=== PATIENT | female | born 1980 | race Caucasian/White ===

== ENCOUNTER 2023-05-18 16:38 | Outpatient (CLI) | payer BC, SELFPAY ==
[2023-05-19 00:54] LABS: Chlamydia DNA Amplified* NOT DETECTED (No Detected); GC DNA Amplified* NOT DETECTED (No Detected)
== END 2023-05-18 16:39 | disposition home or self-care (01) ==
PROVIDERS: Visit Provider Physician Assistant Medical
DX: Z00.00 Encounter for general adult medical examination without abnormal findings (principal); E66.9 Obesity, unspecified; R59.1 Generalized enlarged lymph nodes; Z13.29 Encounter for screening for other suspected endocrine disorder
CPT/HCPCS: 80053; 83615; 86592; 86703; 86803; 87086; 87491; 87591

== ENCOUNTER 2023-05-23 09:37 | Outpatient (CLI) | payer BC, SELFPAY ==
--- NOTE | 2023-05-23 09:45 | CRLHL7_ITS ---
For Patients: As a result of the Cures Act, medical imaging exams and procedure reports are released immediately into your electronic medical record. You may view this report before your referring provider. If you have questions, please contact your health care provider. BILATERAL DIAGNOSTIC MAMMOGRAM WITH COMPUTER-AIDED DETECTION AND TOMOSYNTHESIS CLINICAL HISTORY: RIGHT axillary lump. COMPARISON: None. TECHNIQUE: Digital BILATERAL mammogram in 4 projections. Computer-aided detection and tomosynthesis were used. Real-time ultrasound imaging of RIGHT axilla with imaging documentation. BREAST COMPOSITION: The breasts are heterogeneously dense, which may obscure small masses FINDINGS: 3D CC/MLO and 2D XCCL mammogram images submitted bilaterally. BILATERAL axillary adenopathy. No suspicious breast mass or architectural distortion. No suspicious calcifications. Targeted RIGHT axillary ultrasound performed in the area of palpable concern. There is an enlarged hypoechoic lymph node with internal vascularity measuring 4.2 x 2.3 x 3.4 cm. IMPRESSION: BILATERAL axillary adenopathy on mammography and 4.2 cm enlarged RIGHT axillary lymph node on ultrasound. Findings are suspicious for lymphoma. RECOMMENDATIONS: Ultrasound-guided core needle biopsy of RIGHT axillary lymph node. BI-RADS Category 4: Suspicious Results and recommendations discussed with the patient. Dictated by Luis Barcenas MD @ 05/23/2023 10:54:36 AM/zina CLARK/Dictated by: Luis Barcenas MD @ 05/23/2023 10:54:00 AM (Electronically Signed)
--- NOTE | 2023-05-23 10:15 | CRLHL7_ITS ---
For Patients: As a result of the Century Cures Act, medical imaging exams and procedure reports are released immediately into your electronic medical record. You may view this report before your referring provider. If you have questions, please contact your health care provider. PLEASE SEE BILATERAL DIAGNOSTIC MAMMOGRAM OF SAME DAY. CRL:zina CLARK/Dictated by: Luis Barcenas MD @ 05/23/2023 10:54:00 AM (Electronically Signed)
--- NOTE | 2023-05-23 11:00 | CRLHL7_ITS ---
For Patients: As a result of the 21st Century Cures Act, medical imaging exams and procedure reports are released immediately into your electronic medical record. You may view this report before your referring provider. If you have questions, please contact your health care provider. Indication: Adenopathy Technique: Postcontrast CT chest, abdomen and pelvis. 95 cc Isovue 370 intravenous contrast. Please note that all CT scans at this facility use dose modulation, iterative reconstruction, and/or weight-based dosing when appropriate to reduce radiation dose to as low as reasonably achievable. Comparison: None Findings: In the chest, lower cervical adenopathy noted along with right supraclavicular adenopathy with lymph nodes measuring up to 1.9 cm. There is a low-density nodule within the left thyroid lobe measuring 1 cm. Right hilar adenopathy noted measuring 2.2 cm corresponding to the chest x-ray finding. Bulky axillary adenopathy noted bilaterally with lymph nodes measuring up to 3.4 cm on the right and 2.8 cm on the left. Numerous 1 cm or less mediastinal lymph nodes are present. Dependent areas of atelectasis noted without pleural effusion or pneumothorax. The heart size is upper limits of normal. Breast tissue appears unremarkable. No fracture. In the abdomen, sub cm low-density structures are present within the right hepatic lobe which are most consistent cysts or hemangiomas. The spleen is not enlarged. There is an ill-defined area of decreased attenuation within spleen inferiorly measuring 1.2 cm. No calcified gallstones. No biliary obstruction. The pancreas is normal. Normal adrenal glands. 2 millimeter stone located within the lower pole of the left kidney without hydronephrosis. Small renal cortical cysts are present bilaterally. Extrarenal pelvis is present bilaterally. Bulky retroperitoneal adenopathy with lymph nodes measuring up to 4.9 cm. Diffuse stranding in the mesenteric fat with innumerable enlarged mesenteric lymph nodes measuring up to approximately 1.8 cm. No bowel obstruction. In the pelvis, the bladder is normal. Trace physiologic free fluid. Right ovarian cyst measuring 1.4 cm. Normal left ovary. Bulky left inguinal adenopathy with lymph node mass measuring 3.3 cm. Bilateral pelvic sidewall adenopathy, left greater than right with lymph nodes measuring up to 3.0 cm. No bowel obstruction. No fracture. Impression: Bulky adenopathy in the chest, abdomen and pelvis with additional adenopathy noted in the lower neck and right supraclavicular spaces. Lymphoma favored. Patient has been scheduled for right axillary lymph node biopsy. Ill-defined lesion within the spleen measuring 1.2 cm, likely related to lymphoma. Probable subcentimeter cysts or hemangiomas within the right hepatic lobe. 1 cm colloid cyst left thyroid lobe. Please note that all CT scans at this facility use dose modulation, iterative reconstruction, and/or weight-based dosing when appropriate to reduce radiation dose to as low as reasonably achievable. Dictated by Luis Barcenas MD @ 05/23/2023 1:25:45 PM (Electronically Signed)
--- NOTE | 2023-05-23 11:00 | CRLHL7_ITS ---
For Patients: As a result of the 21st Century Cures Act, medical imaging exams and procedure reports are released immediately into your electronic medical record. You may view this report before your referring provider. If you have questions, please contact your health care provider. INDICATION: Adenopathy COMPARISON: none TECHNIQUE: A CT volumetric acquisition was performed of the neck during intravenous infusion of 95 cc of Isovue 370 nonionic intravenous contrast. Please note that all CT scans at this facility use dose modulation, iterative reconstruction, and/or weight-based dosing when appropriate to reduce radiation dose to as low as reasonably achievable. FINDINGS: The CT images demonstrate normal aeration of the mastoid air cells and middle ear cavities. Mucosal thickening noted within the left maxillary sinus and to a lesser degree within the right maxillary sinus. Leftward curvature nasal septum. The parotid and submandibular glands are of normal size and have uniform enhancement. The oropharynx appears normal. The valleculae, epiglottis, aryepiglottic folds and piriform sinuses appear normal. There is a normal appearance of the larynx and subglottic trachea. The thyroid gland is of normal size and has uniform density. Enlarged submandibular lymph nodes are present bilaterally, right greater than left. The largest submandibular lymph node on the right measures 1.7 cm. Prominent submental lymph nodes are also present measuring up to 9 millimeters. A slightly prominent lymph node is present adjacent to the right parotid gland measuring 8 millimeters. Right supraclavicular adenopathy noted with several lymph nodes present measuring up to 1.6 cm. Osseous structures unremarkable for age. Lung apices clear. IMPRESSION: Bilateral cervical adenopathy, right greater than left, primarily involving the submandibular regions. Additional adenopathy in the right supraclavicular space. Mild bilateral maxillary sinus disease, left greater than right. Please note that all CT scans at this facility use dose modulation, iterative reconstruction, and/or weight-based dosing when appropriate to reduce radiation dose to as low as reasonably achievable. Dictated by Luis Barcenas MD @ 05/23/2023 1:11:50 PM (Electronically Signed)
== END 2023-05-23 09:38 | disposition home or self-care (01) ==
LOC: MAMMO 09:38
PROVIDERS: Visit Provider Physician Assistant Medical
DX: N63.10 Unspecified lump in the right breast, unspecified quadrant (principal); N63.20 Unspecified lump in the left breast, unspecified quadrant; R59.1 Generalized enlarged lymph nodes; E04.1 Nontoxic single thyroid nodule; J32.0 Chronic maxillary sinusitis
CPT/HCPCS: 70491; 71260; 74177; 76882; 77066; G0279; Q9967

== ENCOUNTER 2023-05-26 11:09 | Outpatient (CLI) | payer BC, SELFPAY ==
--- NOTE | 2023-05-26 11:15 | CRLHL7_ITS ---
For Patients: As a result of the Century Cures Act, medical imaging exams and procedure reports are released immediately into your electronic medical record. You may view this report before your referring provider. If you have questions, please contact your health care provider. ULTRASOUND-GUIDED RIGHT AXILLARY LYMPH NODE BIOPSY CLINICAL HISTORY: Palpable right axillary adenopathy, enlarged lymph nodes in the right axilla COMPARISON STUDIES: CT and ultrasound 05/23/2023 TECHNIQUE: Real-time ultrasound with image documentation was used for targeting the right axillary lymph node lesion. Core biopsy specimens were obtained using an automated gun with a 18-gauge biopsy needle. CONSENT and TIME OUT: The procedure, risks, and alternatives were explained to the patient and a consent was signed. [place] Protocol was followed including pre-procedure verification that relevant information/documentation was available, reviewed and properly matched to the patient; consent accurate and complete; and equipment and supplies available. Time Out was conducted just prior to starting procedure to verify the four required elements: patient identity, correct side/site marked (if applicable), procedure, relevant images/results properly labeled and displayed (if applicable). PROCEDURE: The patient was positioned supine on the ultrasound table. The right axilla was prepped ChloraPrep. 8 cc of 1 percent lidocaine used for local anesthesia. Core samples were obtained. A sterile metal biopsy clip was placed percutaneously to americo the lesion position within the right axilla. The specimens were placed in 10% formalin and sent to the pathology department. Pressure was held on the biopsy site until all bleeding subsided. The skin incision was closed with Steri-Strips. An ice pack was positioned over the biopsy site. Post-biopsy instructions were reviewed with the patient, and a written copy was given to her. LATERALITY: Right axilla LESION: Hypoechoic enlarged right axillary lymph node measuring 4.2 x 2.3 x 3.3 cm SUSPICION FOR MALIGNANCY: High, probable lymphoma NUMBER OF SAMPLES: 5 IMPRESSION: Ultrasound-guided right axillary lymph node biopsy. When the pathology report is available, an addendum to this report will be made. ACR not applicable Dictated by Luis Barcenas MD @ 05/26/2023 12:03:22 PM ADDENDUM: Pathology consistent with follicular lymphoma. Oncology consultation recommended. This is concordant. Luis Barcenas M.D. Diagnostic Radiologist [email or web address] RACHEL/shelley: D& Transcribed: 4:17 pm (Electronically Signed)
== END 2023-05-26 11:10 | disposition home or self-care (01) ==
LOC: US 11:10
PROVIDERS: Visit Provider Physician Assistant Medical
DX: R59.1 Generalized enlarged lymph nodes (principal)
CPT/HCPCS: 38505; 76942; 88305; 88341; 88342; 88360; A4648; A4649

== ENCOUNTER 2023-06-15 06:23 | Day surgery (SDC) | payer BC, SELFPAY ==
[2023-06-15 06:51] LABS: Ur HCG Qualitative* Negative (Negative)
[2023-06-15 07:05] VITALS: BP 109/71; PULSE 60; RESP 16; TEMP 36.6; O2SAT 99
[2023-06-15 07:06] VITALS: BMI 32.0
[2023-06-15] MEDS: SODIUM CHLORIDE 0.9 % (FLUSH) 10 ML SYRINGE IVF (07:10)
[2023-06-15] MEDS: LACTATED RINGERS 1000 ML 1,000 ML 100 ML IV (07:10)
--- NOTE | 2023-06-15 07:30 | CRLHL7_ITS ---
For Patients: As a result of the Century Cures Act, medical imaging exams and procedure reports are released immediately into your electronic medical record. You may view this report before your referring provider. If you have questions, please contact your health care provider. INDICATION: Left-sided Port-A-Cath placement. TECHNIQUE: Fluoroscopically guided intraoperative evaluation at the time of Port-A-Cath placement. Two spot images obtained intraoperatively. FINDINGS: 64.2 seconds fluoroscopy time utilized for left-sided Port-A-Cath placement. Two spot images were obtained. The port line tip appears to be in the superior vena cava. IMPRESSION: 64.2 seconds fluoroscopy time utilized intraoperatively. Dictated by Javier Dickson MD @ 06/15/2023 9:24:47 AM (Electronically Signed)
--- NOTE | 2023-06-15 07:32 | W.ANESCHARGE ---
Anesthesia Charges Start Date/Time Anesthesia Start Date: 06/15/23 Anesthesia Start Time: 07:40 Stop Date/Time Anesthesia Stop Date: 06/15/23 Anesthesia Stop Time: 08:47
[2023-06-15] MEDS: CEFAZOLIN 2 GM INJ IVP (07:50)
[2023-06-15] MEDS: BUPIVACAINE 0.5% 30 ML INJECTION (08:15)
[2023-06-15] MEDS: 0.9% SODIUM CHL 50 ML VIAL INJECTION (08:15)
[2023-06-15] MEDS: HEPARIN 500 UNIT/5 ML SYRINGE IVF (08:15)
[2023-06-15] MEDS: LIDOCAINE 1% MDV 20 ML INJECTION (08:15)
[2023-06-15 08:42] VITALS: BP 101/63; PULSE 57; RESP 16; TEMP 36.2; O2SAT 100
[2023-06-15 08:45] VITALS: BP 103/66; PULSE 57; RESP 16; O2SAT 100
--- NOTE | 2023-06-15 08:47 | CRLHL7_ITS ---
For Patients: As a result of the Century Cures Act, medical imaging exams and procedure reports are released immediately into your electronic medical record. You may view this report before your referring provider. If you have questions, please contact your health care provider. INDICATION: Port-A-Cath placement. TECHNIQUE: AP portable seated chest x-ray. COMPARISON : May 18, 2023. FINDINGS: New left-sided Port-A-Cath with its lead tip in the superior vena cava. Right hilar lymph node mass. Clear lungs. No pneumothorax. IMPRESSION: Left-sided Port-A-Cath with lead tip in superior vena cava. No pneumothorax. Dictated by Javier Dickson MD @ 06/15/2023 9:27:06 AM (Electronically Signed)
--- NOTE | 2023-06-15 08:50 | W.ANESCHARGE ---
Anesthesia Charges Start Date/Time Anesthesia Start Date: 06/15/23 Anesthesia Start Time: 07:40 Stop Date/Time Anesthesia Stop Date: 06/15/23 Anesthesia Stop Time: 08:47
--- NOTE | 2023-06-15 08:51 | P.GSOP_ITS ---
Operative Note Date of procedure: 06/15/23 Pre-op diagnosis: Lymphoma, need for chemotherapy Post-op diagnosis: same Type of Procedure: Left IJ Port-A-Cath placement with ultrasound and fluoroscopic guidance. Indications: The patient is a 43-year-old female who has a diagnosis of lymphoma. Oncology has requested a port for chemotherapy. Procedure Description: After discussing the risks and benefits of the procedure, the patient signed informed consent.? The operative site was marked and the patient was brought to the operating room and placed on the operating table in supine position.? Care was taken to pad the patient's pressure points.?? The patient was then given sedation by anesthesia.?? The operative site was then prepped and draped in the usual sterile fashion.? A time-out was then performed. Ultrasound was used to examine the patient's jugular veins. The right internal jugular vein appeared to narrow distally and therefore I chose to place the port on the left. The patient's left internal jugular vein was visualized using ultrasound. Local anesthetic was injected into the skin overlying the vein. This was accessed percutaneously using ultrasound guidance. Using Seldinger technique, a guidewire was threaded through the needle. Fluoroscopy was brought into the field to confirm that the wire had the appropriate trajectory into the SVC. A skin jose was made around the wire. Next, local anesthetic was injected into the skin below the clavicle and along the proposed tract to the neck i ncision. A skin incision was then made with a 15 blade and a pocket created in the subcutaneous tissue with cautery. A tunneler was then used to thread the catheter from the chest wall pocket to the neck incision. Once this was done fluoroscopy was brought into the field. Over the wire the tract was dilated using fluoroscopy. The wire and the dilator were then removed leaving the sheath in the vein. Through this, the catheter was threaded. Using fluoroscopy, the catheter was positioned into the distal SVC. The catheter was noted to flush and aspirate easily. The catheter was then connected to the port. The port was placed in the pocket and secured in place with 2 0 Prolene sutures. It was noted to flush and aspirate easily. This was then locked with heparinized saline. The skin was closed with absorbable suture. Sterile dressings were applied. Instrument sponge and needle counts were correct at the end of the case. The patient was woken and taken to the PACU in stable condition. ? The patient tolerated the procedure well. Findings: Left IJ power port placed in the low SVC. Anesthesia: MAC Surgeon: Krissy Moses MD Estimated blood loss (mL): 5 Condition: stable Disposition: same day
[2023-06-15 09:00] VITALS: BP 114/70; PULSE 52; RESP 16; O2SAT 100
[2023-06-15 09:15] VITALS: BP 120/75; PULSE 55; RESP 16; O2SAT 100
== END 2023-06-15 09:54 | disposition home or self-care (01) ==
PROVIDERS: PCP Physician Assistant Medical; Visit Provider Surgery
PROC: (CPT 36561; principal; 2023-06-15 07:30)
DX: Z45.2 Encounter for adjustment and management of vascular access device (principal); C82.28 Follicular lymphoma grade III, unspecified, lymph nodes of multiple sites
CPT/HCPCS: 36561; 00532; 71045; 76000; 81025; C1788; J0665; J0690; J1100; J1642; J2250; J2405; J2704; J3010; J3490; J7120

== ENCOUNTER 2023-06-26 15:53 | Outpatient (CLI) | payer BC, SELFPAY ==
--- NOTE | 2023-06-26 16:00 | CRLHL7_ITS ---
For Patients: As a result of the Century Cures Act, medical imaging exams and procedure reports are released immediately into your electronic medical record. You may view this report before your referring provider. If you have questions, please contact your health care provider. Indication: Follicular lymphoma. Technique: Multiplanar, multisequence MRI of the brain was performed without and with intravenous contrast. Contrast: 15 cc Dotarem. Comparison: None relevant available at this institution. Findings: The corpus callosum, pituitary gland and clivus appear intact. Craniocervical junction is unremarkable. There is no restricted diffusion. No intracranial hemorrhage. The ventricles are proportionate to the cerebral sulci. The 4th ventricle appears midline. The basal cisterns appear patent. No abnormal extra-axial fluid collection identified. There is no intracranial mass, abnormal mass-effect or midline shift identified. No abnormal enhancement. Major intracranial vascular flow voids appear grossly intact. Both globes are preserved. Mild paranasal sinus mucosal disease, moderate left maxillary sinus. Impression: 1. No acute/subacute infarct. 2. No evidence active FLUX MIXER lymphoma. 3. Moderate left maxillary sinusitis. Dictated by Alec Jaimes MD @ 06/26/2023 6:57:59 PM (Electronically Signed)
== END 2023-06-26 15:54 | disposition home or self-care (01) ==
PROVIDERS: PCP Physician Assistant Medical; Visit Provider Internal Medicine Hematology & Oncology
DX: C82.90 Follicular lymphoma, unspecified, unspecified site (principal); J32.9 Chronic sinusitis, unspecified
CPT/HCPCS: 70553; A9575

== ENCOUNTER 2023-11-15 08:30 | Outpatient (RCR) | payer BC, SELFPAY ==
[2023-06-02 12:26] LABS: Ur HCG Qualitative* Negative (Negative)
[2023-06-02 13:18] LABS: Hepatitis B Surface Antigen* Negative (Negative)
[2023-06-03 17:48] LABS: Hepatitis B Core Antibodies Negative (Negative)
--- NOTE | 2023-06-06 10:26 | URNOTE ---
Per automated message at of [place] at [phone] prior auth is not required for Obinutuzumab (J9301), Vincrisitne (J9370) and Cyclophosphamide (J9070). Confirmation #[id number]
--- NOTE | 2023-06-06 15:30 | ONC.NURNOTE ---
New chemotherapy teaching with discussed targeted therapy obinutuzumab and chemotherapy cytoxan, vincristine and prednisone reviewed treatment schedule, possible side effects, home management, self care, after hours phone #'s, fever management, antiemetics reviewed contents of chemotherapy binder option given for SS consult pending is chemotherapy start date- likely 06/19/23 and pending if follow up with Dr Green on 06/15/23- will need to move appt time because of port placement at [address] Green
--- NOTE | 2023-06-08 16:36 | ONC.NURNOTE ---
Appts called and reviewed with Margie
--- NOTE | 2023-06-13 13:14 | URNOTE ---
Received request for Aloxi([id number]) and Emend ([id number]). Per automated message at [phone] Prior auth is not required for Aloxi ([id number]), confirmation #[id number] and Emend ([id number]) Confirmation #[id number]
[2023-06-21 10:59] VITALS: BP 107/71; PULSE 73; RESP 16; TEMP 36.3; O2SAT 100
[2023-06-21 11:37] LABS: Basophils Percent Auto 0.5 % (0.0-3.0); Eosinophils Percent Auto 1.6 % (0.0-7.0); Hematocrit 37.8 % (33.0-51.0); Hemoglobin* 13.1 gm/dL (12.0-16.0); Lymphocytes Percent Auto 21.9 % (20-44); Mean Corpuscular HGB Conc 35 gm/dL (32-36); Mean Corpuscular Hemoglobin 30 pg (26-34); Mean Corpuscular Volume 87 fL (80-100); Monocytes Percent Auto 12.4 % (0.0-11.0); Neutrophils Percent Auto 63.6 % (42.0-72.0); Platelet Count* 228 K/uL (140-440); RDW Coefficient of Variation % 12.4 % (11.5-15.5); Red Blood Count 4.37 m/uL (4.00-5.20); White Blood Count* 4.43 K/uL (4.50-11.00)
[2023-06-21 11:50] LABS: Albumin* 3.6 g/dL (3.3-5.0); Chloride* 107 mmol/L (96-114); Slide Review Reflex No
[2023-06-21 11:51] LABS: Potassium* 3.5 mmol/L (3.6-5.1); Sodium* 139 mmol/L (135-149)
[2023-06-21 11:53] LABS: Aspartate Amino Transferase* 21 U/L (12-35); Bilirubin Total* 0.7 mg/dL (0.1-1.5); Blood Urea Nitrogen* 10 mg/dL (5-24); Carbon Dioxide* 29 mmol/L (20-32); Creatinine* 0.6 mg/dL (0.5-1.5); Est. Creatinine Clearance* 117.57; Estimated Glomerular Filt Rate 114 ml/min; Total Protein* 5.9 g/dL (6.0-8.3)
[2023-06-21 11:54] LABS: Alanine Aminotransferase* 17 U/L (4-35); Alkaline Phosphatase* 40 U/L (40-150); Calcium* 8.5 mg/dL (8.4-10.6); Glucose* 104 mg/dL (60-115)
[2023-06-21] MEDS: PALONOSETRON 0.25 MG/5 ML inj IV (12:40)
[2023-06-21] MEDS: dexAMETHasone 20 MG in 0.9 % SODIUM CHLORIDE 100 ml 100 ML 408 MG IVPB (12:40)
[2023-06-21] MEDS: FOSAPREPITANT 150 MG inj 150 MG in 0.9 % SODIUM CHLORIDE 250 ml 250 ML 510 MG IVPB (12:59)
[2023-06-22] VITALS (9 sets, daily range): BP systolic 109–125; BP diastolic 68–79; PULSE 55–67; RESP 16–20; TEMP 36.4–37.3; O2SAT 96–98
[2023-06-22] MEDS: ACETAMINOPHEN 325 MG TABLET 975 MG PO (08:19)
[2023-06-22] MEDS: dexAMETHasone 20 MG in 0.9 % SODIUM CHLORIDE 100 ml 100 ML 408 MG IVPB (08:44)
[2023-06-22] MEDS: diphenhydrAMINE 50 MG in 0.9 % SODIUM CHLORIDE 100 ml 100 ML 404 MG IVPB (09:18)
--- NOTE | 2023-06-26 15:17 | ONC.NURNOTE ---
Patient called complaining of vision changes that stared Monday and seemed to get worse Monday but now improving. [employer] Ac[employer] Lead asked patient what kind of changes and she stated hard to focus/blurry and worse for distance to the point she's not even driving. Discussed with Dr. guadalupe and MRI of brain ordered STAT for rule out PML due to Gazyva. If nothing then will decide on steroids vs Gabapentin as cause
[2023-06-29 09:22] VITALS: BP 114/68; PULSE 71; RESP 16; TEMP 35.7; O2SAT 97
[2023-06-29 09:43] LABS: Basophils Percent Auto 0.7 % (0.0-3.0); Eosinophils Percent Auto 1.7 % (0.0-7.0); Hematocrit 36.4 % (33.0-51.0); Hemoglobin* 12.5 gm/dL (12.0-16.0); Immature Granulocytes Pct Auto 1.7 %; Lymphocytes Percent Auto 13.1 % (20-44); Mean Corpuscular HGB Conc 34 gm/dL (32-36); Mean Corpuscular Hemoglobin 30 pg (26-34); Mean Corpuscular Volume 86 fL (80-100); Monocytes Percent Auto 6.6 % (0.0-11.0); Neutrophils Percent Auto 76.2 % (42.0-72.0); Platelet Count* 162 K/uL (140-440); RDW Coefficient of Variation % 11.9 % (11.5-15.5); Red Blood Count 4.23 m/uL (4.00-5.20)
[2023-06-29 09:52] LABS: Slide Review Reflex No
[2023-06-29 10:23] LABS: Albumin* 3.7 g/dL (3.3-5.0); Chloride* 101 mmol/L (96-114)
[2023-06-29 10:24] LABS: Potassium* 3.6 mmol/L (3.6-5.1); Sodium* 135 mmol/L (135-149)
[2023-06-29 10:26] LABS: Aspartate Amino Transferase* 20 U/L (12-35); Bilirubin Total* 0.8 mg/dL (0.1-1.5); Carbon Dioxide* 28 mmol/L (20-32); Creatinine* 0.6 mg/dL (0.5-1.5); Est. Creatinine Clearance* 117.57; Estimated Glomerular Filt Rate 114 ml/min
[2023-06-29 10:27] LABS: Alanine Aminotransferase* 32 U/L (4-35); Alkaline Phosphatase* 43 U/L (40-150); Blood Urea Nitrogen* 16 mg/dL (5-24); Calcium* 8.4 mg/dL (8.4-10.6); Glucose* 129 mg/dL (60-115)
[2023-06-29] MEDS: dexAMETHasone 20 MG in 0.9 % SODIUM CHLORIDE 100 ml 100 ML 408 MG IVPB (11:09)
[2023-06-29 11:15] VITALS: TEMP 35.7
[2023-06-29] MEDS: ACETAMINOPHEN 325 MG TABLET PO (11:15)
[2023-06-29] MEDS: diphenhydrAMINE 50 MG in 0.9 % SODIUM CHLORIDE 100 ml 100 ML 404 MG IVPB (11:27)
[2023-06-29 12:36] VITALS: BP 107/68; PULSE 63; RESP 16; TEMP 36.7; O2SAT 100
[2023-06-29 13:08] VITALS: BP 111/76; PULSE 70; RESP 16; TEMP 37.1; O2SAT 99
[2023-06-29 13:45] VITALS: BP 108/68; PULSE 80; RESP 16; TEMP 37.2; O2SAT 98
[2023-06-29 16:10] VITALS: BP 102/66; PULSE 70; RESP 16; TEMP 36.3; O2SAT 96
[2023-07-06 08:37] VITALS: BP 115/77; PULSE 74; RESP 16; TEMP 36.3; O2SAT 98
[2023-07-06 08:53] LABS: Basophils Percent Auto 1.9 % (0.0-3.0); Eosinophils Percent Auto 2.9 % (0.0-7.0); Hematocrit 38.2 % (33.0-51.0); Hemoglobin* 13.1 gm/dL (12.0-16.0); Lymphocytes Percent Auto 35.4 % (20-44); Mean Corpuscular HGB Conc 34 gm/dL (32-36); Mean Corpuscular Hemoglobin 30 pg (26-34); Mean Corpuscular Volume 87 fL (80-100); Monocytes Percent Auto 35.4 % (0.0-11.0); Neutrophils Percent Auto 23.4 % (42.0-72.0); Platelet Count* 186 K/uL (140-440); RDW Coefficient of Variation % 12.7 % (11.5-15.5); Red Blood Count 4.39 m/uL (4.00-5.20); White Blood Count* 2.06 K/uL (4.50-11.00)
[2023-07-06 09:05] LABS: Albumin* 3.7 g/dL (3.3-5.0)
[2023-07-06 09:06] LABS: Chloride* 107 mmol/L (96-114); Potassium* 3.9 mmol/L (3.6-5.1); Sodium* 138 mmol/L (135-149)
[2023-07-06 09:08] LABS: Aspartate Amino Transferase* 23 U/L (12-35); Bilirubin Total* 0.5 mg/dL (0.1-1.5); Carbon Dioxide* 26 mmol/L (20-32); Creatinine* 0.7 mg/dL (0.5-1.5); Est. Creatinine Clearance* 100.77; Estimated Glomerular Filt Rate 110 ml/min
[2023-07-06 09:09] LABS: Alanine Aminotransferase* 31 U/L (4-35); Alkaline Phosphatase* 46 U/L (40-150); Blood Urea Nitrogen* 14 mg/dL (5-24); Calcium* 8.5 mg/dL (8.4-10.6); Glucose* 106 mg/dL (60-115); Total Protein* 6.1 g/dL (6.0-8.3)
[2023-07-06 09:20] LABS: Slide Review Acceptable Review (Acceptable); Slide Review Reflex Yes
[2023-07-06] MEDS: SODIUM CHLORIDE 0.9 % (FLUSH) 10 ML SYRINGE IVF (09:55)
[2023-07-06] MEDS: HEPARIN 500 UNIT/5 ML SYRINGE IVF (09:55)
--- NOTE | 2023-07-06 10:14 | ONC.NURNOTE ---
Pt here for cycle 1 day 15 Gazyva. VSS. ANC 0.5. Discussed with Anny Jacob APRN and Dr. Gunderson. Orders received to delay day 15 Gazyva by one week. Pt scheduled to see Dr. Green next Monday prior to treatment. Pt also given written information on neutropenic precautions. Pt verbalized understanding of plan of care.
[2023-07-12 08:30] LABS: Basophils Absolute Auto 0.05 K/uL (0.00-0.30); Basophils Percent Auto 0.8 % (0.0-3.0); Eosinophils Absolute Auto 0.04 K/uL (0.00-0.50); Eosinophils Percent Auto 0.7 % (0.0-7.0); Hematocrit 37.7 % (33.0-51.0); Immature Granulocytes Abs Auto 0.03 K/uL (0.00-0.30); Immature Granulocytes Pct Auto 0.5 %; Lymphocytes Percent Auto 19.2 % (20-44); Mean Corpuscular HGB Conc 35 gm/dL (32-36); Mean Corpuscular Hemoglobin 30 pg (26-34); Mean Corpuscular Volume 88 fL (80-100); Monocytes Percent Auto 12.7 % (0.0-11.0); Neutrophils Absolute Auto 3.95 K/uL (1.7-7.0); Neutrophils Percent Auto 66.1 % (42.0-72.0); Platelet Count* 221 K/uL (140-440); RDW Coefficient of Variation % 13.2 % (11.5-15.5); Red Blood Count 4.31 m/uL (4.00-5.20); White Blood Count* 5.98 K/uL (4.50-11.00)
[2023-07-12 08:34] LABS: Slide Review Reflex No
[2023-07-12 08:48] LABS: Albumin* 3.8 g/dL (3.3-5.0); Chloride* 108 mmol/L (96-114); Potassium* 3.9 mmol/L (3.6-5.1); Sodium* 140 mmol/L (135-149)
[2023-07-12 08:50] LABS: Bilirubin Total* 0.6 mg/dL (0.1-1.5); Carbon Dioxide* 25 mmol/L (20-32); Creatinine* 0.7 mg/dL (0.5-1.5); Est. Creatinine Clearance* 100.77; Estimated Glomerular Filt Rate 110 ml/min
[2023-07-12 08:51] LABS: Alanine Aminotransferase* 36 U/L (4-35); Alkaline Phosphatase* 54 U/L (40-150); Aspartate Amino Transferase* 40 U/L (12-35); Blood Urea Nitrogen* 21 mg/dL (5-24); Calcium* 9.3 mg/dL (8.4-10.6); Glucose* 101 mg/dL (60-115); Total Protein* 6.2 g/dL (6.0-8.3)
[2023-07-12] MEDS: ACETAMINOPHEN 325 MG TABLET 975 MG PO (10:05)
[2023-07-12] MEDS: diphenhydrAMINE 25 MG in 0.9 % SODIUM CHLORIDE 100 ml 100 ML 402 MG IVPB (10:08)
[2023-07-12] MEDS: dexAMETHasone 20 MG in 0.9 % SODIUM CHLORIDE 100 ml 100 ML 408 MG IVPB (10:28)
[2023-07-12] MEDS: OBINUTUZUMAB 1,000 MG, TUBING PRIMARY 1 EACH in 0.9 % SODIUM CHLORIDE 250 ml 250 ML 100 MG IVPB (10:43)
[2023-07-12 12:00] VITALS: BP 117/79; PULSE 62; RESP 14; TEMP 36.1; O2SAT 98
[2023-07-12] MEDS: FOSAPREPITANT 150 MG inj 150 MG in 0.9 % SODIUM CHLORIDE 250 ml 250 ML 765 MG IVPB (12:52)
[2023-07-12] MEDS: PALONOSETRON 0.25 MG/5 ML inj IV (12:52)
[2023-07-12] MEDS: HEPARIN 500 UNIT/5 ML SYRINGE IVF (16:18)
[2023-07-12] MEDS: 0.9 % SODIUM CHLORIDE 250 ml IV (16:18)
[2023-07-12] MEDS: SODIUM CHLORIDE 0.9 % (FLUSH) 10 ML SYRINGE IVF (16:18)
--- NOTE | 2023-07-12 16:40 | ONC.NURNOTE ---
Gazyva was started at 1045 at 100cc hr. after 1/2 hr increased to 200cc hr. vs 117/79-62-14. rest infused at 225cchr. total of 90 minute infusion. pt iris well. Cytoxan infused over a hr. pt iris well. altho, states slight headache and took her own adveive. enc her to take it with food. she states just ate large lunch. supportive. iris treatment well. port was easily assessed and good blood return.
--- NOTE | 2023-07-13 09:22 | ONC.NURNOTE ---
05/12/23 Gazyva ran in over 90 minutes . checking on pt every 1/2 hr. VS at noon wnl. Pt. iris well. Anny Longo APRN discussed running future Gazyva over 90 minutes. Per Anny Longo APRN pt agreed. Cytoxan infused over a hour. Pt iris. well. Altho, states slight headache once infusion finished. states she will take aleive with food. supportive. Port was easily assessed and good blood return.
[2023-08-02 07:58] LABS: Basophils Percent Auto 0.5 % (0.0-3.0); Eosinophils Percent Auto 1.4 % (0.0-7.0); Hemoglobin* 12.6 gm/dL (12.0-16.0); Immature Granulocytes Pct Auto 0.7 %; Lymphocytes Percent Auto 18.7 % (20-44); Mean Corpuscular HGB Conc 34 gm/dL (32-36); Mean Corpuscular Hemoglobin 30 pg (26-34); Mean Corpuscular Volume 88 fL (80-100); Monocytes Percent Auto 16.1 % (0.0-11.0); Neutrophils Percent Auto 62.6 % (42.0-72.0); Platelet Count* 199 K/uL (140-440); RDW Coefficient of Variation % 13.2 % (11.5-15.5); Red Blood Count 4.19 m/uL (4.00-5.20); White Blood Count* 4.23 K/uL (4.50-11.00)
[2023-08-02 08:09] LABS: Slide Review Reflex No
[2023-08-02 08:12] LABS: Albumin* 3.6 g/dL (3.3-5.0); Chloride* 108 mmol/L (96-114)
[2023-08-02 08:13] LABS: Potassium* 3.9 mmol/L (3.6-5.1); Sodium* 138 mmol/L (135-149)
[2023-08-02 08:15] LABS: Anion Gap 3 mEq/L (7-15); Aspartate Amino Transferase* 26 U/L (12-35); Bilirubin Total* 0.4 mg/dL (0.1-1.5); Carbon Dioxide* 27 mmol/L (20-32); Creatinine* 0.6 mg/dL (0.5-1.5); Est. Creatinine Clearance* 117.57; Estimated Glomerular Filt Rate 114 ml/min; Total Protein* 5.8 g/dL (6.0-8.3)
[2023-08-02 08:16] LABS: Alanine Aminotransferase* 21 U/L (4-35); Alkaline Phosphatase* 42 U/L (40-150); Blood Urea Nitrogen* 8 mg/dL (5-24); Calcium* 8.9 mg/dL (8.4-10.6); Glucose* 106 mg/dL (60-115)
[2023-08-02] MEDS: ACETAMINOPHEN 325 MG TABLET 975 MG PO (09:22)
[2023-08-02] MEDS: diphenhydrAMINE 25 MG in 0.9 % SODIUM CHLORIDE 100 ml 100 ML 402 MG IVPB (09:37)
[2023-08-02] MEDS: OBINUTUZUMAB 1,000 MG, TUBING PRIMARY 1 EACH in 0.9 % SODIUM CHLORIDE 250 ml 250 ML 25 MG IVPB (10:05)
[2023-08-02 10:40] VITALS: BP 118/65; PULSE 54; RESP 16; TEMP 36.6; O2SAT 100
[2023-08-02] MEDS: PALONOSETRON 0.25 MG/5 ML inj IV (12:02)
[2023-08-02] MEDS: dexAMETHasone 20 MG in 0.9 % SODIUM CHLORIDE 100 ml 100 ML 408 MG IVPB (12:02)
[2023-08-02 12:09] VITALS: BP 111/74; PULSE 57; RESP 18; TEMP 36.5; O2SAT 98
[2023-08-02] MEDS: FOSAPREPITANT 150 MG inj 150 MG in 0.9 % SODIUM CHLORIDE 250 ml 250 ML 780 MG IVPB (12:25)
[2023-08-02] MEDS: HEPARIN 500 UNIT/5 ML SYRINGE IVF (13:40)
[2023-08-02] MEDS: SODIUM CHLORIDE 0.9 % (FLUSH) 10 ML SYRINGE IVF (13:40)
--- NOTE | 2023-08-07 13:19 | ONC.NURNOTE ---
PET order and supporting documentation faxed to [facility] #[phone]. Scheduled for 08/15/23 at 8am. Pt aware.
[2023-08-21 15:16] LABS: Basophils Percent Auto 0.7 % (0.0-3.0); Eosinophils Percent Auto 1.7 % (0.0-7.0); Hematocrit 36.1 % (33.0-51.0); Hemoglobin* 12.4 gm/dL (12.0-16.0); Immature Granulocytes Pct Auto 1.2 %; Lymphocytes Percent Auto 19.8 % (20-44); Mean Corpuscular HGB Conc 34 gm/dL (32-36); Mean Corpuscular Hemoglobin 30 pg (26-34); Mean Corpuscular Volume 87 fL (80-100); Monocytes Percent Auto 17.9 % (0.0-11.0); Neutrophils Percent Auto 58.7 % (42.0-72.0); Platelet Count* 244 K/uL (140-440); Red Blood Count 4.14 m/uL (4.00-5.20); White Blood Count* 4.24 K/uL (4.50-11.00)
[2023-08-21 15:30] LABS: Slide Review Reflex No
[2023-08-21 15:34] LABS: Chloride* 105 mmol/L (96-114)
[2023-08-21 15:35] LABS: Albumin* 3.7 g/dL (3.3-5.0); Potassium* 3.6 mmol/L (3.6-5.1); Sodium* 142 mmol/L (135-149)
[2023-08-21 15:37] LABS: Bilirubin Total* 0.5 mg/dL (0.1-1.5); Creatinine* 0.7 mg/dL (0.5-1.5); Est. Creatinine Clearance* 100.77; Estimated Glomerular Filt Rate 110 ml/min
[2023-08-21 15:38] LABS: Alanine Aminotransferase* 52 U/L (4-35); Alkaline Phosphatase* 81 U/L (40-150); Anion Gap 6 mEq/L (7-15); Aspartate Amino Transferase* 39 U/L (12-35); Blood Urea Nitrogen* 12 mg/dL (5-24); Calcium* 9.4 mg/dL (8.4-10.6); Carbon Dioxide* 31 mmol/L (20-32); Glucose* 88 mg/dL (60-115); Total Protein* 6.3 g/dL (6.0-8.3)
[2023-08-22 09:01] VITALS: BP 139/78; PULSE 57; RESP 16; TEMP 35.9; O2SAT 100
[2023-08-22] MEDS: diphenhydrAMINE 25 MG CAPSULE PO (09:22)
[2023-08-22] MEDS: ACETAMINOPHEN 325 MG TABLET 975 MG PO (09:22)
[2023-08-22] MEDS: SODIUM CHLORIDE 0.9 % (FLUSH) 10 ML SYRINGE IVF (09:30)
[2023-08-22] MEDS: 0.9 % SODIUM CHLORIDE 250 ml IV ×2 (09:30→13:50)
[2023-08-22] MEDS: dexAMETHasone 12 MG in 0.9 % SODIUM CHLORIDE 100 ml 100 ML 420 MG IVPB (09:49)
[2023-08-22] MEDS: OBINUTUZUMAB 1,000 MG, TUBING PRIMARY 1 EACH in 0.9 % SODIUM CHLORIDE 250 ml 250 ML 25 MG IVPB (10:13)
--- NOTE | 2023-08-22 10:17 | PC.NURSE ---
Pt present today for cycle 4 of chemo. Pre-meds include IV Benadryl. Dose was decreased from 50 mg IV to 25 mg IV as pt didn't like how it made her feel. Today Margie asked if it was possible to do 12.5 mg Benadryl IV. We discussed the option of doing oral Benadryl, pt was reluctant due to the wait time, however, after some thinking, pt decided to try Benadryl 25 mg oral. RN discussed with Anny Montana APRN [employer]OR who changed the treatment plan. If pt tolerates, she can take both Tylenol and Benadryl orally at home prior to coming in to expedite the process. Anny Montana APRN will discuss this further with pt as she needs to understand the risk of not getting treated after having taken oral pre-meds at home. Pt understands all of the above.
[2023-08-22 10:47] VITALS: BP 108/70; PULSE 73; RESP 16; TEMP 36.8; O2SAT 94
[2023-08-22] MEDS: FOSAPREPITANT 150 MG inj 150 MG in 0.9 % SODIUM CHLORIDE 250 ml 250 ML 700 MG IVPB (12:06)
[2023-08-22] MEDS: PALONOSETRON 0.25 MG/5 ML inj IV (12:06)
[2023-08-22 12:11] VITALS: BP 109/63; PULSE 68; RESP 16; TEMP 36.6; O2SAT 98
[2023-08-22] MEDS: HEPARIN 500 UNIT/5 ML SYRINGE IVF (13:50)
[2023-09-13 09:16] LABS: Basophils Absolute Auto 0.05 K/uL (0.00-0.30); Eosinophils Absolute Auto 0.08 K/uL (0.00-0.50); Eosinophils Percent Auto 1.6 % (0.0-7.0); Hematocrit 38.2 % (33.0-51.0); Hemoglobin* 13.1 gm/dL (12.0-16.0); Immature Granulocytes Abs Auto 0.04 K/uL (0.00-0.30); Immature Granulocytes Pct Auto 0.8 %; Lymphocytes Percent Auto 13.9 % (20-44); Mean Corpuscular HGB Conc 34 gm/dL (32-36); Mean Corpuscular Hemoglobin 30 pg (26-34); Mean Corpuscular Volume 88 fL (80-100); Monocytes Percent Auto 13.9 % (0.0-11.0); Neutrophils Absolute Auto 3.37 K/uL (1.7-7.0); Neutrophils Percent Auto 68.8 % (42.0-72.0); Platelet Count* 229 K/uL (140-440); RDW Coefficient of Variation % 12.7 % (11.5-15.5); Red Blood Count 4.36 m/uL (4.00-5.20)
[2023-09-13 09:28] LABS: Slide Review Reflex No
[2023-09-13 09:39] LABS: Albumin* 3.9 g/dL (3.3-5.0); Chloride* 105 mmol/L (96-114); Sodium* 141 mmol/L (135-149)
[2023-09-13 09:40] LABS: Potassium* 3.7 mmol/L (3.6-5.1)
[2023-09-13 09:42] LABS: Alkaline Phosphatase* 99 U/L (40-150); Anion Gap 9 mEq/L (7-15); Aspartate Amino Transferase* 44 U/L (12-35); Bilirubin Total* 0.7 mg/dL (0.1-1.5); Blood Urea Nitrogen* 13 mg/dL (5-24); Carbon Dioxide* 27 mmol/L (20-32); Creatinine* 0.6 mg/dL (0.5-1.5); Est. Creatinine Clearance* 117.57; Estimated Glomerular Filt Rate 114 ml/min; Total Protein* 6.5 g/dL (6.0-8.3)
[2023-09-13 09:43] LABS: Alanine Aminotransferase* 45 U/L (4-35); Calcium* 8.9 mg/dL (8.4-10.6); Glucose* 101 mg/dL (60-115)
[2023-09-13] MEDS: ACETAMINOPHEN 325 MG TABLET 975 MG PO (10:01)
[2023-09-13] MEDS: 0.9 % SODIUM CHLORIDE 250 ml IV (10:03)
[2023-09-13] MEDS: diphenhydrAMINE 50 MG/ML inj 12.5 MG IVP (10:09)
[2023-09-13] MEDS: OBINUTUZUMAB 1,000 MG, TUBING PRIMARY 1 EACH in 0.9 % SODIUM CHLORIDE 250 ml 250 ML 25 MG IVPB (10:40)
[2023-09-13 11:24] VITALS: BP 132/87; PULSE 62; RESP 16; TEMP 36.8; O2SAT 97
[2023-09-13 12:33] VITALS: BP 103/69; PULSE 60; TEMP 36.4; O2SAT 97
[2023-09-13] MEDS: dexAMETHasone 12 MG in 0.9 % SODIUM CHLORIDE 100 ml 100 ML 404.8 MG IVPB (12:39)
[2023-09-13] MEDS: PALONOSETRON 0.25 MG/5 ML inj IV (12:39)
[2023-09-13] MEDS: FOSAPREPITANT 150 MG inj 150 MG in 0.9 % SODIUM CHLORIDE 250 ml 250 ML 510 MG IVPB (13:03)
[2023-09-13] MEDS: SODIUM CHLORIDE 0.9 % (FLUSH) 10 ML SYRINGE IVF (14:42)
[2023-09-13] MEDS: HEPARIN 500 UNIT/5 ML SYRINGE IVF (14:43)
[2023-10-04 08:27] VITALS: BP 125/78; PULSE 70; RESP 16; TEMP 35.8; O2SAT 100
[2023-10-04 08:51] LABS: Basophils Percent Auto 0.7 % (0.0-3.0); Eosinophils Percent Auto 1.6 % (0.0-7.0); Hematocrit 36.2 % (33.0-51.0); Hemoglobin* 12.6 gm/dL (12.0-16.0); Immature Granulocytes Pct Auto 1.8 %; Lymphocytes Percent Auto 20.8 % (20-44); Mean Corpuscular HGB Conc 35 gm/dL (32-36); Mean Corpuscular Hemoglobin 30 pg (26-34); Mean Corpuscular Volume 85 fL (80-100); Monocytes Percent Auto 15.9 % (0.0-11.0); Neutrophils Percent Auto 59.2 % (42.0-72.0); Platelet Count* 270 K/uL (140-440); RDW Coefficient of Variation % 12.2 % (11.5-15.5); Red Blood Count 4.24 m/uL (4.00-5.20); White Blood Count* 4.47 K/uL (4.50-11.00)
[2023-10-04 08:52] LABS: Slide Review Reflex No
[2023-10-04 09:05] LABS: Chloride* 107 mmol/L (96-114); Potassium* 4.1 mmol/L (3.6-5.1); Sodium* 140 mmol/L (135-149)
[2023-10-04 09:07] LABS: Creatinine* 0.6 mg/dL (0.5-1.5); Est. Creatinine Clearance* 117.57; Estimated Glomerular Filt Rate 114 ml/min
[2023-10-04 09:08] LABS: Alanine Aminotransferase* 31 U/L (4-35); Alkaline Phosphatase* 92 U/L (40-150); Anion Gap 5 mEq/L (7-15); Aspartate Amino Transferase* 27 U/L (12-35); Bilirubin Total* 0.6 mg/dL (0.1-1.5); Blood Urea Nitrogen* 15 mg/dL (5-24); Carbon Dioxide* 28 mmol/L (20-32); Glucose* 123 mg/dL (60-115); Total Protein* 6.7 g/dL (6.0-8.3)
[2023-10-04 09:09] LABS: Calcium* 8.9 mg/dL (8.4-10.6)
[2023-10-04] MEDS: ACETAMINOPHEN 325 MG TABLET 975 MG PO (09:24)
[2023-10-04] MEDS: OBINUTUZUMAB 1,000 MG, TUBING PRIMARY 1 EACH in 0.9 % SODIUM CHLORIDE 250 ml 250 ML 25 MG IVPB (10:26)
[2023-10-04 11:04] VITALS: BP 118/79; PULSE 65; RESP 16; TEMP 36.5; O2SAT 99
[2023-10-04 12:26] VITALS: BP 117/82; PULSE 58; TEMP 36.5; O2SAT 99
[2023-10-04] MEDS: PALONOSETRON 0.25 MG/5 ML inj IV (12:29)
[2023-10-04] MEDS: dexAMETHasone 12 MG in 0.9 % SODIUM CHLORIDE 100 ml 100 ML 400 MG IVPB (12:29)
[2023-10-04] MEDS: FOSAPREPITANT 150 MG inj 150 MG in 0.9 % SODIUM CHLORIDE 250 ml 250 ML 600 MG IVPB (12:53)
[2023-10-04] MEDS: diphenhydrAMINE 50 MG/ML inj 12.5 MG IVP (13:22)
[2023-10-23 08:55] LABS: Hematocrit 37.5 % (33.0-51.0); Hemoglobin* 12.8 gm/dL (12.0-16.0); Lymphocytes Percent Auto 15.8 % (20-44); Mean Corpuscular HGB Conc 34 gm/dL (32-36); Mean Corpuscular Hemoglobin 30 pg (26-34); Mean Corpuscular Volume 88 fL (80-100); Neutrophils Percent Auto 63.1 % (42.0-72.0); Platelet Count* 253 K/uL (140-440); Red Blood Count 4.28 m/uL (4.00-5.20); White Blood Count* 3.04 K/uL (4.50-11.00)
[2023-10-23 08:56] LABS: Basophils Percent Auto 0.3 % (0.0-3.0); Immature Granulocytes Pct Auto 0.7 %; Monocytes Percent Auto 17.1 % (0.0-11.0)
[2023-10-23 09:01] LABS: Slide Review Reflex No
[2023-10-23 09:20] LABS: Albumin* 4.1 g/dL (3.3-5.0); Chloride* 104 mmol/L (96-114); Sodium* 142 mmol/L (135-149)
[2023-10-23 09:21] LABS: Potassium* 3.6 mmol/L (3.6-5.1)
[2023-10-23 09:23] LABS: Alkaline Phosphatase* 84 U/L (40-150); Anion Gap 8 mEq/L (7-15); Aspartate Amino Transferase* 47 U/L (12-35); Bilirubin Total* 0.5 mg/dL (0.1-1.5); Blood Urea Nitrogen* 10 mg/dL (5-24); Carbon Dioxide* 30 mmol/L (20-32); Creatinine* 0.7 mg/dL (0.5-1.5); Est. Creatinine Clearance* 100.77; Estimated Glomerular Filt Rate 110 ml/min; Glucose* 93 mg/dL (60-115); Total Protein* 6.8 g/dL (6.0-8.3)
[2023-10-23 09:24] LABS: Alanine Aminotransferase* 60 U/L (4-35); Calcium* 9.2 mg/dL (8.4-10.6)
[2023-10-25] MEDS: ACETAMINOPHEN 325 MG TABLET 975 MG PO (08:31)
[2023-10-25 08:38] VITALS: BP 109/77; PULSE 78; RESP 16; TEMP 36.3; O2SAT 99
[2023-10-25] MEDS: OBINUTUZUMAB 1,000 MG, TUBING PRIMARY 1 EACH in 0.9 % SODIUM CHLORIDE 250 ml 250 ML 25 MG IVPB (09:16)
[2023-10-25 09:50] VITALS: BP 125/82; PULSE 78; RESP 18; TEMP 37; O2SAT 99
[2023-10-25 11:05] VITALS: BP 118/77; PULSE 75; RESP 18; TEMP 36.9; O2SAT 98
[2023-10-25] MEDS: PALONOSETRON 0.25 MG/5 ML inj IV (11:08)
[2023-10-25] MEDS: dexAMETHasone 12 MG in 0.9 % SODIUM CHLORIDE 100 ml 100 ML 404 MG IVPB (11:09)
[2023-10-25] MEDS: FOSAPREPITANT 150 MG inj 150 MG in 0.9 % SODIUM CHLORIDE 250 ml 250 ML 600 MG IVPB (11:31)
[2023-11-15 09:16] LABS: Basophils Percent Auto 0.5 % (0.0-3.0); Eosinophils Percent Auto 1.6 % (0.0-7.0); Hematocrit 37.1 % (33.0-51.0); Hemoglobin* 12.5 gm/dL (12.0-16.0); Immature Granulocytes Pct Auto 0.3 %; Lymphocytes Percent Auto 18.3 % (20-44); Mean Corpuscular HGB Conc 34 gm/dL (32-36); Mean Corpuscular Hemoglobin 29 pg (26-34); Mean Corpuscular Volume 86 fL (80-100); Monocytes Percent Auto 16.1 % (0.0-11.0); Neutrophils Percent Auto 63.2 % (42.0-72.0); Platelet Count* 226 K/uL (140-440); RDW Coefficient of Variation % 12.7 % (11.5-15.5); White Blood Count* 3.66 K/uL (4.50-11.00)
[2023-11-15 09:21] LABS: Slide Review Reflex No
[2023-11-15 09:28] LABS: Albumin* 4.2 g/dL (3.3-5.0); Chloride* 106 mmol/L (96-114)
[2023-11-15 09:29] LABS: Potassium* 3.7 mmol/L (3.6-5.1); Sodium* 142 mmol/L (135-149)
[2023-11-15 09:31] LABS: Anion Gap 8 mEq/L (7-15); Bilirubin Total* 0.5 mg/dL (0.1-1.5); Carbon Dioxide* 28 mmol/L (20-32); Creatinine* 0.6 mg/dL (0.5-1.5); Est. Creatinine Clearance* 117.57; Estimated Glomerular Filt Rate 114 ml/min
[2023-11-15 09:32] LABS: Alanine Aminotransferase* 35 U/L (4-35); Alkaline Phosphatase* 78 U/L (40-150); Aspartate Amino Transferase* 26 U/L (12-35); Blood Urea Nitrogen* 18 mg/dL (5-24); Calcium* 9.3 mg/dL (8.4-10.6); Glucose* 113 mg/dL (60-115); Total Protein* 6.8 g/dL (6.0-8.3)
[2023-11-15] MEDS: ACETAMINOPHEN 325 MG TABLET 975 MG PO (10:17)
[2023-11-15] MEDS: OBINUTUZUMAB 1,000 MG, TUBING PRIMARY 1 EACH in 0.9 % SODIUM CHLORIDE 250 ml 250 ML 25 MG IVPB (11:01)
[2023-11-15 11:39] VITALS: BP 127/81; PULSE 65; RESP 16; TEMP 36.4; O2SAT 99
[2023-11-15] MEDS: PALONOSETRON 0.25 MG/5 ML inj IV (12:54)
[2023-11-15] MEDS: dexAMETHasone 12 MG in 0.9 % SODIUM CHLORIDE 100 ml 100 ML 410 MG IVPB (12:54)
[2023-11-15] MEDS: FOSAPREPITANT 150 MG inj 150 MG in 0.9 % SODIUM CHLORIDE 250 ml 250 ML 800 MG IVPB (13:29)
[2023-11-15] MEDS: SODIUM CHLORIDE 0.9 % (FLUSH) 10 ML SYRINGE IVF ×2 (14:01→14:44)
[2023-11-15] MEDS: 0.9 % SODIUM CHLORIDE 250 ml IV (14:01)
[2023-11-15] MEDS: HEPARIN 500 UNIT/5 ML SYRINGE IVF (14:44)
== END 2023-11-29 23:59 | disposition home or self-care (01) ==
LOC: CCIC 08:30
PROVIDERS: Clinical Nurse Specialist; PCP Physician Assistant Medical; Referring Provider Physician Assistant Medical; Visit Provider Internal Medicine Hematology & Oncology
DX: Z51.11 Encounter for antineoplastic chemotherapy (principal); C82.90 Follicular lymphoma, unspecified, unspecified site; H53.2 Diplopia; H53.8 Other visual disturbances; N91.2 Amenorrhea, unspecified
CPT/HCPCS: 36415; 36591; 80053; 81025; 84443; 84550; 85025; 86704; 87340; 96366; 96376; 96411; 96413; 96415; 96417; 99203; 99205; 99211; 99212; 99213; 99214; 99215; J9070; A9270; J1100; J1200; J1453; J1642; J2469; J7050; J9301; J9370

== ENCOUNTER 2024-06-06 08:56 | Outpatient (CLI) | payer BC, SELFPAY ==
--- OUTSIDE RECORDS SUMMARY | 2024-06-06 09:04 | XMS_ITS | Clinical Summary ---
Author Organization [facility] Address [address] [address] Phone Care Team Providers Care National Accounts Recruiter Name Role Phone Margie Klein PA-C Primary Care Provid er Allergies No known active allergies Medications No known medications Active Problems Problem Noted Date Diagnosed Date Plica of knee, right 04/23/2014 Pfs (patellofemoral syndrome), unspecified later ality 04/23/2014 Overview: Updated per 08/27/17 IMO import S/P partial thyroidectomy 04/11/2013 Eczema of hand 04/11/2013 Contraception management 04/13/2012 Resolved Problems Problem Noted Date Diagnosed Date Resolved Date Thyroid lump 03/08/2013 03/26/2013 , supervision for, high-risk 08/22/2011 02/15/2013 Overview: IMO Update 09/06 History of 08/22/2011 013 Hx successful (vaginal after ), currently 08/22/2011 02/15/2013 Rh negative status during 08/22/2011 02/15/2013 Immunizations Name Administration Dates Next Due Influenza (Historic Use Only) 09/24/2010, 009,11/17/2008 Influenza A H1n1 10/16/2009 Influenza Quad Preservative Free 10/02/2014 Influenza Seasonal Inj A,B P reservative Free 08/22/2011 Tdap-Tetanus, Diphtheria, Pertussis 11+ Yrs 12/2011 Surgical History Surgery Date Site/Laterality Comments EYE SURGERY left retina repaired SECTION times one primary LTCS 03/2009. WISDOM TOOTH EXTRACTION THYROIDECTOMY 03/13/2013 Right Thyroid Lobectomy - path - thyroidiitis INSERT INTRAUTERINE DEVICE 06-19-2013 Mirena TOOTH EXTRACTION 05/2014 infection upper left molar spread through cheek into sinuses Medical History Medical History Date Comments Varicella Pre-eclampsia with HELPS; firs t Retina hole right Retinal tear left eye; repair ed Family History Medical History Relation Comments Skin Condition Daughter 3 vetiligo Cardiovascular Disease Maternal Grandfather Other Endocrine Disease Mother thyroid issues Psychiatric Disease Mother anxiety Cardiovascular Disease Paternal Grandfather Ophthalmic Disease Paternal Grandfather glaucoma Pulmonary Disease Paternal Grandfather emphysema from smoking Vascular Disease Paternal Grandfather VA Hypertension Paternal Grandmother Lipid Elevation Paternal Grandmother Musculo-skeletal Disease Paternal Grandmother ar thritis Psychiatric Disease Sister 3 bipolar Other Endocrine Disease Sister 4 nodules on thyroid Diabetes Negative Family Hx Relation Status Comments Daughter 1 Alive Daughter 2 Alive Daughter 3 Father Alive Maternal Grandfather Mother Alive Paternal Grandfather Paternal Grandmother Sister 1 Alive Sister 2 Alive Sister 3 Sister 4 Son Alive Social History Tobacco Use Types Packs/Day Years Used Date Smoking Tobacco: Never Smokeless Tobacco: Never Alcohol Use Standard Drinks/Week Comments No 0 (1 standard drink = 0.6 oz pure alcohol) Prior to : less than once a week per pt. Sex and Gender Information Value Date Recorded Sex Assigned at Not on file Gender Identity Not on file Sexual Orientation Not on file Obstetrics History Para Term AB IAB SAB Ectopic Molar Multiple Living Live Births 3 3 2 1 0 0 0 0 0 3 Date Outcome GA Total Labor Labor/2nd/3rd Weight Sex Type Anes PTL Dayana A1 A5 Name Clin Term 009 35w 4d 1758 g (3 lb 14 oz) F LV/CS Spinal Elizab eth Bexel l-Gie rke Delivery Location:[facility] Comments:emergency c-s ection d/t PIH with HELPS 011 Term 38w 3d 5h 00m/ 3260 g (7 lb 3 oz) F Epidur al Nikki Bexel l-Gie rke Delivery Location:[facility] Comments:[facility]; uncompl icated Comments Decreased milk/lacation Last Filed Vital Signs Vital Sign Reading Time Taken Comments Blood Pressure 127/82 06/10/2015 3:26 PM CDT Pulse 58 06/10/2015 3:26 PM CDT Temperature 36.4 ??C (97.6 ??F) 06/10/2015 3:26 PM CD T Respiratory Rate 12 03/28/2013 10:30 AM CDT Oxygen Saturation 99% 03/28/2013 10:30 AM CDT Inhaled Oxygen Concentration - - Weight 80.3 kg (177 lb) 06/10/2015 3:26 PM CDT Height 171.5 cm (5' 7.5) 06/10/2015 3:26 PM CDT Body Mass Index 27.31 06/10/2015 3:26 PM CDT Plan of Treatment Health Maintenance Due Date Last Done Comments Last pap w/ HPV Testing 1980 MAMMO,SCREEN 1980 Hepatitis B Vaccine (Standing Order) (1 of 3 - 19+ 3-dose series) 1999 Cervical Cancer Screening 08/22/2014 Last pap w/o HPV Testing 08/22/2014 011, 08/22/2011, 06/04/2010, Additional history exists TETANUS (Standing Order) 02/26/2022 02/27/2012 Influenza Vaccine Seasonal (Standing Order) (#1) 2024 10/02/2014, 08/22/2011, 10/16/2009 PERTUSSIS (Standing Order) Completed 02/27/2012 HPV Vaccine (Standing Order) Aged Out No longer eligible based on patient's age to complete this topic Pneumococcal/PCV20 Vaccine: Pediatrics (2-5 yrs) and At-Risk Patients (6-64 yrs) (Standing Order) Aged Out No longer eligible based on patient's age to complete this topic Procedures Procedure Name Priority Date/Time Associated Diagnosis Comments PAP LIQUID BASED Routine 08/22/2011 8:37 AM CDT , supervision for, high-risk from Last 3 Months or Most Recently Relevant to Health Maintenance Results * PAP LIQUID BASED (08/22/2011 8:37 AM CDT) PAP LIQUID BASED see below LABORATORY Comment: Specimen has been received at the testing facility. Path report to follow. 08/22/2011 8:37 AM CDT 08/23/2011 8:37 AM CDT Narrative [facility] - 08/24/2011 10:41 AM CDT Screen or Diagnostic?->SCREENSpecimen Source?->ENDOCERVICAL/CERVICALPrevious Pap?->NormalDate of LMP?->06/03/2011 Ignacio Ruff MD [facility] from Last 3 Months or Most Recently Relevant to Health Maintenance Advance Directives For more information, please contact: [phone] * Full Code (Latest Code Status on File) Date Activated Date Inactivated Comments 03/13/2013 5:35 PM 03/14/2013 1:53 PM * Full Code Date Activated Date Inactivated Comments 03/13/2013 10:05 AM 03/13/2013 5:35 PM * Full Code Date Activated Date Inactivated Comments 02/26/2012 5:41 AM 02/28/2012 3:23 PM Care Teams National Accounts Recruiter Relationship Specialty Start Date End Date Margie Klein PA-C [address] [id number] PCP - General Family Medicine 05/27/15
--- OUTSIDE RECORDS SUMMARY | 2024-06-06 09:04 | XMS_ITS | Clinical Summary ---
Author Organization [facility] Address [place], [place] [address] Care Team Providers Care Public Policy Mediator Name Role Phone Hali Enrique PA-C Primary Care Provider [phone] Allergies No known active allergies Medications No known medications Encounters Date Type Department Care Team Description 05/23/2024 6:59 AM CDT - 05/23/2024 11:59 PM CDT Hospital Encounter [facility] [address] [place] [address] Queta Green MD Lymphoma (HC) 05/23/2024 Travel from Last 3 Months Social History Tobacco Use Types Packs/Day Years Used Date Smoking Tobacco: Never Assessed Sex and Gender Information Value Date Recorded Sex Assigned at Not on file Gender Identity Not on file Sexual Orientation Not on file Plan of Treatment Health Maintenance Due Date Last Done Comments Tdap 1991 Depression screening for age 12+ 1992 HIV for age 15-65 1995 BMI (ht and wt on same day) for age 18+ 1998 Hepatitis C screening for age 18-79 1998 Tetanus booster 2000 COVID-19 vaccine series ( season) 2023 06/26/2021, 03/22/2021 Influenza for age 9-49 07/28/2024 Pap test for age 21-65 05/18/2026 , 05/18/2023, 03/14/2018, Additional history exists Pneumococcal series for age 6-64 Aged Out No longer eligible based on patient's age to complete this topic Procedures Procedure Name Priority Date/Time Associated Diagnosis Comments PET CT SKULL BASE TO MID THIGH SUBSEQUENT TREAT Routine 05/23/2024 8:15 AM CDT Lymphoma ([facility]) GLUCOSE METER Routine 05/23/2024 7:05 AM CDT HPV THIN PREP Routine 05/18/2023 5:15 PM CDT from Last 3 Months or Most Recently Relevant to Health Maintenance Results * PET CT SKULL BASE TO MID THIGH SUBSEQUENT TREAT (05/23/2024 8:15 AM CDT) Anatomical Region Laterality Modality Positron Emissio n Tomography (PET) 05/23/2024 11:0 5 AM CDT Narrative 05/23/2024 11:05 AM CDT For Patients: ??As a result of the Century Cures Act, medical imaging exams and procedure reports are released immediately into your electronic medical record. ??You may view this report before your referring provider. ??If you have questions, please contact your health care provider. INDICATION: 44 year-old female. 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 Chemotherapy. Follow-up. Restaging. TECHNIQUE: 8.5 mCi 18 FDG (18 hthfyb-eu-yrb-glucose) injected intravenously. Imaging performed from the mid forehead to the proximal thighs [address] performed for anatomic correlation and attenuation correction. Pre scan glucose: 82 mg/dL. COMPARISON: PET/CT scan January 08, 2024. FINDINGS: Physiologic activity is identified in the brain, salivary glands, tongue, paralaryngeal soft tissues, myocardium, GI, and tract. The included intracranial structures, included soft tissues of the head, face, and neck are within normal limits. Metabolically inactive polyp or retention cyst left sphenoid sinus, present in retrospect, and unchanged. Mucosal thickening/partial opacification inferior left maxillary sinus no longer metabolically active, previously demonstrating an SUV max of 3.0. No metabolically active cervical lymph adenopathy. No evidence for increased metabolic activity within the thyroid gland. There is a stable left thyroid lobe nodule or cyst without increased metabolic activity. Within the chest there is stable low level activity associated with a small right axillary lymph node, 6 mm short axis, SUV max 1.6, entirely unchanged Tiny left axillary lymph node, measuring 6 mm short axis, previously 8 mm with an SUV max of 1.5, entirely unchanged. The chest is otherwise negative. Both breasts are within normal limits. The abdomen and pelvis are within normal limits. Both inguinal regions are within normal limits although there is a small minimally metabolically active left inguinal lymph node SUV max 1.5. The soft tissues of the included thighs are within normal limits. The included skeleton is within normal limits. There is some asymmetric muscular activity about the sternoclavicular joints right greater than left of no clinical significance. Background liver activity SUV max 3.8. Background splenic activity, SUV max 2.5. Blood pool activity descending thoracic aorta SUV max 2.8. CT Findings: Mucosal thickening/partial opacification left maxillary sinus. Stable polyp or retention cyst left sphenoid sinus. Left-sided Port-A-Cath with its tip in the superior vena cava. Clear lungs. No splenomegaly or hydronephrosis. Punctate nonobstructing stone left kidney unchanged. Prominent uterus may reflect fibroids. IMPRESSION : 1. Stable very low level activity associated with a small right and left axillary lymph node and a small left inguinal lymph node. 2. No new areas of abnormal increased metabolic activity. 3. DEAUVILLE Score: II. Dictated by Javier Dickson MD @ 05/23/2024 11:05:52 AM (Electronically Signed) Procedure Note Javier Dickson MD - 05/23/2024 For Patients: As a result of the Century Cures Act, medical imagingexams and procedure reports are released immediately into your electronicmedical record. You may view this report before your referring provider.If you have questions, please contact your health care provider. INDICATION: 44 year-old female. History of follicular lymphoma diagnosed February 2023.Chemotherapy. Follow-up. Restaging. TECHNIQUE: 8.5 mCi 18 FDG (18 fghabn-tb-zln-glucose) injected intravenously. Imaging performed from the mid forehead to the proximal thighs [address] performed for anatomic correlation and attenuation correction. Pre scanglucose: 82 mg/dL. COMPARISON: PET/CT scan January 08, 2024. FINDINGS: Physiologic activity is identified in the brain, salivary glands, tongue,paralaryngeal soft tissues, myocardium, GI, and tract. The included intracranial structures, included soft tissues of the head,face, and neck are within normal limits. Metabolically inactive polyp or retention cyst left sphenoid sinus,present in retrospect, and unchanged. Mucosal thickening/partial opacification inferior left maxillary sinus nolonger metabolically active, previously demonstrating an SUV max of 3.0. No metabolically active cervical lymph adenopathy. No evidence for increased metabolic activity within the thyroid gland. There is a stable left thyroid lobe nodule or cyst without increasedmetabolic activity. Within the chest there is stable low level activity associated with asmall right axillary lymph node, 6 mm short axis, SUV max 1.6, entirelyunchanged Tiny left axillary lymph node, measuring 6 mm short axis, previously 8 mmwith an SUV max of 1.5, entirely unchanged. The chest is otherwise negative. Both breasts are within normal limits. The abdomen and pelvis are within normal limits. Both inguinal regions are within normal limits although there is a smallminimally metabolically active left inguinal lymph node SUV max 1.5. The soft tissues of the included thighs are within normal limits. The included skeleton is within normal limits. There is some asymmetric muscular activity about the sternoclavicularjoints right greater than left of no clinical significance. Background liver activity SUV max 3.8. Background splenic activity, SUV max 2.5. Blood pool activity descending thoracic aorta SUV max 2.8. CT Findings: Mucosal thickening/partial opacification left maxillarysinus. Stable polyp or retention cyst left sphenoid sinus. Left-sided Port-A-Cath with its tip in the superior vena cava. Clearlungs. No splenomegaly or hydronephrosis. Punctate nonobstructing stone left kidney unchanged. Prominent uterus mayreflect fibroids. IMPRESSION : 1. Stable very low level activity associated with a small right and leftaxillary lymph node and a small left inguinal lymph node. 2. No new areas of abnormal increased metabolic activity. 3. DE[place] Score: II. Dictated by Javier Dickson MD @ 05/23/2024 11:05:52 AM (Electronically Signed) Queta Green MD PET * GLUCOSE METER (05/23/2024 7:05 AM CDT) GLUCOSE METER 82 65 - 100 mg/dL 05/23/2024 8:36 AM CDT [facility] Blood BLOOD SPECIMEN / Unknown 05/23/2024 7:05 AM CDT 05/23/2024 8:35 AM CDT Queta Green MD CHEMISTRY [facility] [address] [place] [address], * HPV HIGH RISK (05/18/2023 5:15 PM CDT) TYPE 16 Negative Negative 05/26/2023 2:45 PM CDT [facility] TYPE 18 Negative Negative 05/26/2023 2:45 PM CDT [facility] OTHER HIGH RISK TYPES Negative Negative 05/26/2023 2:45 PM CDT [facility] Other (Cervical) 05/18/2023 5:15 PM CDT 05/22/2023 12:53 PM CDT Narrative [facility] - 05/26/2023 2:45 PM CDT HPV types 16, 18, 31, 33, 35, 39, 45, 51, 52, 56, 58, 59, 66 and 68 DNA were undetectable or below the pre-set threshold. Methodology: Dm Michelle 4800 HPV Test Hali Enrique PA-C MICROBIOLOGY Performing Organization Address City/[facility]/ZIP Co de Phone Number [facility] [address] [place] [address], from Last 3 Months or Most Recently Relevant to Health Maintenance Care Teams Public Policy Mediator Relationship Specialty Start Date End Date Hali Enrique PA-C [address] [place] [address] PCP - General Emergency Medicine 10/17/23
== END 2024-06-06 08:57 | disposition home or self-care (01) ==
PROVIDERS: PCP Physician Assistant Medical; Visit Provider Physician Assistant Medical
DX: Z00.00 Encounter for general adult medical examination without abnormal findings (principal); R53.83 Other fatigue; R03.0 Elevated blood-pressure reading, without diagnosis of hypertension; M25.50 Pain in unspecified joint; N91.2 Amenorrhea, unspecified; N89.8 Other specified noninflammatory disorders of vagina; Z13.6 Encounter for screening for cardiovascular disorders; Z13.1 Encounter for screening for diabetes mellitus
CPT/HCPCS: 80061; 82306; 82607; 83001; 84443

== ENCOUNTER 2024-06-24 08:00 | Outpatient (RCR) | payer BC, SELFPAY ==
[2023-12-29] MEDS: HEPARIN 500 UNIT/5 ML SYRINGE IVF (08:39)
[2023-12-29] MEDS: SODIUM CHLORIDE 0.9 % (FLUSH) 10 ML SYRINGE IVF (08:39)
[2024-01-22 13:34] LABS: Basophils Absolute Auto 0.03 K/uL (0.00-0.30); Basophils Percent Auto 0.6 % (0.0-3.0); Eosinophils Absolute Auto 0.06 K/uL (0.00-0.50); Eosinophils Percent Auto 1.2 % (0.0-7.0); Hemoglobin* 13.1 gm/dL (12.0-16.0); Lymphocytes Percent Auto 18.2 % (20-44); Mean Corpuscular HGB Conc 35 gm/dL (32-36); Mean Corpuscular Hemoglobin 29 pg (26-34); Mean Corpuscular Volume 85 fL (80-100); Neutrophils Absolute Auto 3.39 K/uL (1.7-7.0); Platelet Count* 243 K/uL (140-440); RDW Coefficient of Variation % 12.6 % (11.5-15.5); Red Blood Count 4.45 m/uL (4.00-5.20); White Blood Count* 5.06 K/uL (4.50-11.00)
[2024-01-22 13:43] LABS: Slide Review Reflex No
[2024-01-22 13:59] LABS: Albumin* 4.3 g/dL (3.3-5.0); Chloride* 104 mmol/L (96-114)
[2024-01-22 14:00] LABS: Potassium* 3.3 mmol/L (3.6-5.1); Sodium* 138 mmol/L (135-149)
[2024-01-22 14:02] LABS: Alkaline Phosphatase* 68 U/L (40-150); Anion Gap 8 mEq/L (7-15); Aspartate Amino Transferase* 25 U/L (12-35); Bilirubin Total* 0.8 mg/dL (0.1-1.5); Carbon Dioxide* 26 mmol/L (20-32); Creatinine* 0.4 mg/dL (0.5-1.5); Estimated Glomerular Filt Rate 125 ml/min
[2024-01-22 14:03] LABS: Alanine Aminotransferase* 20 U/L (4-35); Blood Urea Nitrogen* 11 mg/dL (5-24); Calcium* 9.4 mg/dL (8.4-10.6); Glucose* 114 mg/dL (60-115); Lactate Dehydrogenase* 196 U/L (120-246)
[2024-02-07 13:11] VITALS: BP 122/87; PULSE 79; RESP 16; TEMP 36.5; O2SAT 99
[2024-02-07 13:38] LABS: Basophils Absolute Auto 0.03 K/uL (0.00-0.30); Basophils Percent Auto 0.6 % (0.0-3.0); Eosinophils Absolute Auto 0.05 K/uL (0.00-0.50); Hematocrit 38.5 % (33.0-51.0); Hemoglobin* 13.4 gm/dL (12.0-16.0); Lymphocytes Percent Auto 17.1 % (20-44); Mean Corpuscular HGB Conc 35 gm/dL (32-36); Mean Corpuscular Hemoglobin 30 pg (26-34); Mean Corpuscular Volume 85 fL (80-100); Monocytes Percent Auto 9.6 % (0.0-11.0); Neutrophils Absolute Auto 3.72 K/uL (1.7-7.0); Neutrophils Percent Auto 71.7 % (42.0-72.0); Platelet Count* 268 K/uL (140-440); RDW Coefficient of Variation % 12.3 % (11.5-15.5); Red Blood Count 4.52 m/uL (4.00-5.20); Slide Review Reflex No; White Blood Count* 5.19 K/uL (4.50-11.00)
[2024-02-07 13:51] LABS: Albumin* 4.4 g/dL (3.3-5.0); Chloride* 105 mmol/L (96-114)
[2024-02-07 13:52] LABS: Potassium* 3.6 mmol/L (3.6-5.1); Sodium* 140 mmol/L (135-149)
[2024-02-07 13:54] LABS: Alkaline Phosphatase* 87 U/L (40-150); Anion Gap 7 mEq/L (7-15); Aspartate Amino Transferase* 29 U/L (12-35); Bilirubin Total* 0.8 mg/dL (0.1-1.5); Blood Urea Nitrogen* 13 mg/dL (5-24); Carbon Dioxide* 28 mmol/L (20-32); Creatinine* 0.6 mg/dL (0.5-1.5); Estimated Glomerular Filt Rate 113 ml/min; Total Protein* 6.8 g/dL (6.0-8.3)
[2024-02-07 13:55] LABS: Alanine Aminotransferase* 36 U/L (4-35); Calcium* 9.6 mg/dL (8.4-10.6); Glucose* 134 mg/dL (60-115)
[2024-02-07] MEDS: ACETAMINOPHEN 325 MG TABLET 975 MG PO (14:23)
[2024-02-07] MEDS: dexAMETHasone 20 MG in 0.9 % SODIUM CHLORIDE 100 ml 100 ML 408 MG IVPB (14:34)
[2024-02-07] MEDS: OBINUTUZUMAB 1,000 MG, TUBING PRIMARY 1 EACH in 0.9 % SODIUM CHLORIDE 250 ml 250 ML 25 MG IVPB (14:55)
[2024-02-07 15:31] VITALS: BP 124/83; PULSE 65; RESP 16; TEMP 36.8; O2SAT 97
[2024-02-07 16:35] VITALS: BP 133/83; PULSE 69; RESP 16; TEMP 36.7; O2SAT 97
[2024-02-07] MEDS: SODIUM CHLORIDE 0.9 % (FLUSH) 10 ML SYRINGE IVF (16:37)
[2024-02-07] MEDS: HEPARIN 500 UNIT/5 ML SYRINGE IVF (16:37)
[2024-02-29] MEDS: SODIUM CHLORIDE 0.9 % (FLUSH) 10 ML SYRINGE IVF (09:40)
[2024-02-29] MEDS: HEPARIN 500 UNIT/5 ML SYRINGE IVF (09:40)
[2024-04-03 08:06] LABS: Basophils Absolute Auto 0.03 K/uL (0.00-0.30); Basophils Percent Auto 0.6 % (0.0-3.0); Eosinophils Absolute Auto 0.07 K/uL (0.00-0.50); Eosinophils Percent Auto 1.5 % (0.0-7.0); Hematocrit 38.8 % (33.0-51.0); Hemoglobin* 13.1 gm/dL (12.0-16.0); Immature Granulocytes Abs Auto 0.03 K/uL (0.00-0.30); Immature Granulocytes Pct Auto 0.6 %; Lymphocytes Percent Auto 18.7 % (20-44); Mean Corpuscular HGB Conc 34 gm/dL (32-36); Mean Corpuscular Hemoglobin 29 pg (26-34); Mean Corpuscular Volume 87 fL (80-100); Monocytes Percent Auto 13.8 % (0.0-11.0); Neutrophils Absolute Auto 3.05 K/uL (1.7-7.0); Neutrophils Percent Auto 64.8 % (42.0-72.0); Platelet Count* 240 K/uL (140-440); RDW Coefficient of Variation % 12.7 % (11.5-15.5); Red Blood Count 4.48 m/uL (4.00-5.20); White Blood Count* 4.71 K/uL (4.50-11.00)
[2024-04-03 08:09] LABS: Slide Review Reflex No
[2024-04-03 08:38] LABS: Albumin* 4.2 g/dL (3.3-5.0); Chloride* 107 mmol/L (96-114); Sodium* 141 mmol/L (135-149)
[2024-04-03 08:39] LABS: Potassium* 3.8 mmol/L (3.6-5.1)
[2024-04-03 08:41] LABS: Alanine Aminotransferase* 68 U/L (4-35); Alkaline Phosphatase* 90 U/L (40-150); Anion Gap 3 mEq/L (7-15); Aspartate Amino Transferase* 56 U/L (12-35); Bilirubin Total* 0.7 mg/dL (0.1-1.5); Blood Urea Nitrogen* 21 mg/dL (5-24); Carbon Dioxide* 31 mmol/L (20-32); Creatinine* 0.6 mg/dL (0.5-1.5); Estimated Glomerular Filt Rate 113 ml/min; Glucose* 106 mg/dL (60-115); Total Protein* 6.8 g/dL (6.0-8.3)
[2024-04-03 08:42] LABS: Calcium* 9.4 mg/dL (8.4-10.6)
[2024-04-03] MEDS: ACETAMINOPHEN 325 MG TABLET 975 MG PO (09:02)
[2024-04-03 09:18] LABS: HCG Quantitative* < 2.39 mIU/mL
[2024-04-03] MEDS: OBINUTUZUMAB 1,000 MG, TUBING PRIMARY 1 EACH in 0.9 % SODIUM CHLORIDE 250 ml 250 ML 25 MG IVPB (09:55)
[2024-04-03] MEDS: HEPARIN 500 UNIT/5 ML SYRINGE IVF (11:47)
[2024-04-03] MEDS: SODIUM CHLORIDE 0.9 % (FLUSH) 10 ML SYRINGE IVF (11:47)
[2024-04-03 11:53] VITALS: BP 135/89; PULSE 59; RESP 16; TEMP 36.4; O2SAT 97
[2024-05-01] MEDS: SODIUM CHLORIDE 0.9 % (FLUSH) 10 ML SYRINGE IVF (08:19)
[2024-05-01] MEDS: HEPARIN 500 UNIT/5 ML SYRINGE IVF (08:19)
[2024-05-29 08:20] LABS: Basophils Absolute Auto 0.03 K/uL (0.00-0.30); Basophils Percent Auto 0.6 % (0.0-3.0); Eosinophils Absolute Auto 0.09 K/uL (0.00-0.50); Eosinophils Percent Auto 1.8 % (0.0-7.0); Hematocrit 38.2 % (33.0-51.0); Hemoglobin* 13.2 gm/dL (12.0-16.0); Immature Granulocytes Abs Auto 0.02 K/uL (0.00-0.30); Immature Granulocytes Pct Auto 0.4 %; Lymphocytes Percent Auto 16.9 % (20-44); Mean Corpuscular HGB Conc 35 gm/dL (32-36); Mean Corpuscular Hemoglobin 30 pg (26-34); Mean Corpuscular Volume 87 fL (80-100); Monocytes Percent Auto 11.8 % (0.0-11.0); Neutrophils Absolute Auto 3.48 K/uL (1.7-7.0); Neutrophils Percent Auto 68.5 % (42.0-72.0); Platelet Count* 249 K/uL (140-440); RDW Coefficient of Variation % 12.5 % (11.5-15.5); Red Blood Count 4.41 m/uL (4.00-5.20); White Blood Count* 5.08 K/uL (4.50-11.00)
[2024-05-29 08:21] LABS: Slide Review Reflex No
[2024-05-29 08:26] LABS: Albumin* 4.3 g/dL (3.3-5.0); Chloride* 106 mmol/L (96-114)
[2024-05-29 08:27] LABS: Potassium* 3.5 mmol/L (3.6-5.1); Sodium* 141 mmol/L (135-149)
[2024-05-29 08:29] LABS: Anion Gap 7 mEq/L (7-15); Aspartate Amino Transferase* 35 U/L (12-35); Bilirubin Total* 0.8 mg/dL (0.1-1.5); Carbon Dioxide* 28 mmol/L (20-32); Creatinine* 0.6 mg/dL (0.5-1.5); Estimated Glomerular Filt Rate 113 ml/min
[2024-05-29 08:30] LABS: Alanine Aminotransferase* 35 U/L (4-35); Alkaline Phosphatase* 100 U/L (40-150); Blood Urea Nitrogen* 12 mg/dL (5-24); Calcium* 9.2 mg/dL (8.4-10.6); Glucose* 131 mg/dL (60-115); Total Protein* 6.6 g/dL (6.0-8.3)
[2024-05-29 08:47] LABS: HCG Quantitative* < 2.39 mIU/mL
[2024-05-29] MEDS: ACETAMINOPHEN 325 MG TABLET 975 MG PO (09:05)
[2024-05-29] MEDS: HEPARIN 500 UNIT/5 ML SYRINGE IVF (09:20)
[2024-05-29] MEDS: SODIUM CHLORIDE 0.9 % (FLUSH) 10 ML SYRINGE IVF (09:20)
[2024-05-29] MEDS: OBINUTUZUMAB 1,000 MG, TUBING PRIMARY 1 EACH in 0.9 % SODIUM CHLORIDE 250 ml 250 ML 25 MG IVPB (09:45)
[2024-05-29 10:15] VITALS: BP 147/86; PULSE 61; RESP 14; TEMP 36.1; O2SAT 98
[2024-06-24 08:23] VITALS: BP 142/89; PULSE 68; RESP 16; TEMP 36.2; O2SAT 100
[2024-06-24] MEDS: HEPARIN 500 UNIT/5 ML SYRINGE IVF (08:32)
[2024-06-24] MEDS: SODIUM CHLORIDE 0.9 % (FLUSH) 10 ML SYRINGE IVF (08:32)
--- NOTE | 2024-06-24 08:37 | ONC.NURNOTE ---
Pt here for port flush c/o swelling of lymph nodes around the left side of her face. Upon assessment pt reports that some red bumps appeared on her left cheek last night; she thought it may be a bug bite she didn't notice. Over the weekend it progressed to visible swollen cheek, new red spots above left upper lip and forehead. She notes tingling in the original red patch on her cheek, describing as it feeling like critter is crawling around in there. She reports palpable swelling in her lymph node under left side of chin, in front of left ear and left clavicle. Upon assessment, appears consistent with possibly early shingles; no blisters or open sores or crusting yet. Reviewed with Anny Longo APRN; she is in room with the patient.
[2024-06-24 09:07] LABS: Basophils Absolute Auto 0.03 K/uL (0.00-0.30); Basophils Percent Auto 0.6 % (0.0-3.0); Eosinophils Absolute Auto 0.07 K/uL (0.00-0.50); Eosinophils Percent Auto 1.4 % (0.0-7.0); Hematocrit 41.1 % (33.0-51.0); Hemoglobin* 14.1 gm/dL (12.0-16.0); Immature Granulocytes Abs Auto 0.01 K/uL (0.00-0.30); Immature Granulocytes Pct Auto 0.2 %; Lymphocytes Percent Auto 15.6 % (20-44); Mean Corpuscular HGB Conc 34 gm/dL (32-36); Mean Corpuscular Hemoglobin 30 pg (26-34); Mean Corpuscular Volume 86 fL (80-100); Monocytes Percent Auto 14.5 % (0.0-11.0); Neutrophils Percent Auto 67.7 % (42.0-72.0); Platelet Count* 199 K/uL (140-440); RDW Coefficient of Variation % 12.3 % (11.5-15.5); Red Blood Count 4.77 m/uL (4.00-5.20); White Blood Count* 4.88 K/uL (4.50-11.00)
[2024-06-24 09:08] LABS: Slide Review Reflex No
[2024-06-24 09:24] LABS: Albumin* 4.4 g/dL (3.3-5.0); Chloride* 106 mmol/L (96-114)
[2024-06-24 09:25] LABS: Potassium* 3.8 mmol/L (3.6-5.1); Sodium* 139 mmol/L (135-149)
[2024-06-24 09:27] LABS: Anion Gap 5 mEq/L (7-15); Aspartate Amino Transferase* 33 U/L (12-35); Bilirubin Total* 0.8 mg/dL (0.1-1.5); Carbon Dioxide* 28 mmol/L (20-32); Creatinine* 0.6 mg/dL (0.5-1.5); Estimated Glomerular Filt Rate 113 ml/min; Total Protein* 6.8 g/dL (6.0-8.3)
[2024-06-24 09:28] LABS: Alanine Aminotransferase* 42 U/L (4-35); Alkaline Phosphatase* 117 U/L (40-150); Blood Urea Nitrogen* 12 mg/dL (5-24); Calcium* 9.5 mg/dL (8.4-10.6); Glucose* 103 mg/dL (60-115)
== END 2024-06-26 23:59 | disposition home or self-care (01) ==
LOC: CCIC 08:00
PROVIDERS: Internal Medicine Hematology & Oncology; PCP Physician Assistant Medical; Referring Provider Physician Assistant Medical; Visit Provider Clinical Nurse Specialist
DX: C82.90 Follicular lymphoma, unspecified, unspecified site (principal); Z45.2 Encounter for adjustment and management of vascular access device; R59.1 Generalized enlarged lymph nodes; R21 Rash and other nonspecific skin eruption
CPT/HCPCS: 36415; 36591; 80053; 83615; 84702; 85025; 96376; 96413; 96415; 99211; 99214; G0463; A9270; J1100; J1642; J7050; J9301

== ENCOUNTER 2024-12-09 13:24 | Outpatient (CLI) | payer BC, SELFPAY | END 2024-12-09 13:25 | disposition home or self-care (01) | LOC: NFLDREF 12-17 | PROVIDERS: PCP Physician Assistant Medical; Referring Provider Physician Assistant Medical; Visit Provider Internal Medicine Hematology & Oncology | DX: C82.28 Follicular lymphoma grade III, unspecified, lymph nodes of multiple sites (principal) | CPT/HCPCS: 80053 ==

== ENCOUNTER 2025-01-10 10:30 | Outpatient (RCR) | payer BC, SELFPAY ==
--- NOTE | 2024-07-17 13:51 | URNOTE ---
Request received for authorization for Obinutuzumab ([id number]). Prior authorization is approved per [facility] of [place], Ref#[id number], Date Range: 07/24/2024 to 07/16/2025.
[2024-07-24 08:16] LABS: Basophils Percent Auto 0.5 % (0.0-3.0); Eosinophils Percent Auto 1.4 % (0.0-7.0); Hematocrit 38.8 % (33.0-51.0); Hemoglobin* 13.2 gm/dL (12.0-16.0); Immature Granulocytes Pct Auto 0.2 %; Lymphocytes Percent Auto 20.4 % (20-44); Mean Corpuscular HGB Conc 34 gm/dL (32-36); Mean Corpuscular Hemoglobin 30 pg (26-34); Mean Corpuscular Volume 88 fL (80-100); Monocytes Percent Auto 13.5 % (0.0-11.0); Platelet Count* 245 K/uL (140-440); Red Blood Count 4.43 m/uL (4.00-5.20); White Blood Count* 4.36 K/uL (4.50-11.00)
[2024-07-24 08:19] LABS: Slide Review Reflex No
[2024-07-24 08:29] LABS: Albumin* 4.2 g/dL (3.3-5.0); Chloride* 106 mmol/L (96-114); Potassium* 3.6 mmol/L (3.6-5.1); Sodium* 141 mmol/L (135-149)
[2024-07-24 08:31] LABS: Anion Gap 5 mEq/L (7-15); Bilirubin Total* 0.9 mg/dL (0.1-1.5); Carbon Dioxide* 30 mmol/L (20-32); Creatinine* 0.6 mg/dL (0.5-1.5); Estimated Glomerular Filt Rate 113 ml/min
[2024-07-24 08:32] LABS: Alanine Aminotransferase* 40 U/L (4-35); Alkaline Phosphatase* 106 U/L (40-150); Aspartate Amino Transferase* 30 U/L (12-35); Blood Urea Nitrogen* 10 mg/dL (5-24); Calcium* 9.5 mg/dL (8.4-10.6); Glucose* 101 mg/dL (60-115); Total Protein* 6.5 g/dL (6.0-8.3)
[2024-07-24 08:58] LABS: HCG Quantitative* < 2.39 mIU/mL
[2024-07-24] MEDS: ACETAMINOPHEN 325 MG TABLET 975 MG PO (09:30)
[2024-07-24] MEDS: SODIUM CHLORIDE 0.9 % (FLUSH) 10 ML SYRINGE IVF ×2 (09:58→11:53)
[2024-07-24] MEDS: 0.9 % SODIUM CHLORIDE 250 ml IV (09:59)
[2024-07-24] MEDS: OBINUTUZUMAB 1,000 MG, TUBING PRIMARY 1 EACH in 0.9 % SODIUM CHLORIDE 250 ml 250 ML 25 MG IVPB (10:01)
[2024-07-24 10:36] VITALS: BP 146/86; PULSE 61; RESP 16; TEMP 36.7; O2SAT 95
[2024-07-24] MEDS: HEPARIN 500 UNIT/5 ML SYRINGE IVF (11:54)
[2024-08-21] MEDS: SODIUM CHLORIDE 0.9 % (FLUSH) 10 ML SYRINGE IVF (08:55)
[2024-08-21] MEDS: HEPARIN 500 UNIT/5 ML SYRINGE IVF (08:55)
[2024-09-18 07:59] LABS: Basophils Absolute Auto 0.03 K/uL (0.00-0.30); Basophils Percent Auto 0.6 % (0.0-3.0); Eosinophils Absolute Auto 0.08 K/uL (0.00-0.50); Eosinophils Percent Auto 1.7 % (0.0-7.0); Hemoglobin* 13.8 gm/dL (12.0-16.0); Lymphocytes Percent Auto 18.4 % (20-44); Mean Corpuscular HGB Conc 34 gm/dL (32-36); Mean Corpuscular Hemoglobin 30 pg (26-34); Mean Corpuscular Volume 90 fL (80-100); Monocytes Percent Auto 12.7 % (0.0-11.0); Neutrophils Absolute Auto 3.08 K/uL (1.7-7.0); Neutrophils Percent Auto 66.6 % (42.0-72.0); Platelet Count* 238 K/uL (140-440); RDW Coefficient of Variation % 12.8 % (11.5-15.5); Red Blood Count 4.56 m/uL (4.00-5.20); White Blood Count* 4.63 K/uL (4.50-11.00)
[2024-09-18 08:03] LABS: Slide Review Reflex No
[2024-09-18 08:16] LABS: Chloride* 104 mmol/L (96-114)
[2024-09-18 08:17] LABS: Albumin* 4.3 g/dL (3.3-5.0); Sodium* 139 mmol/L (135-149)
[2024-09-18 08:20] LABS: Alanine Aminotransferase* 279 U/L (4-35); Alkaline Phosphatase* 147 U/L (40-150); Anion Gap 6 mEq/L (7-15); Aspartate Amino Transferase* 136 U/L (12-35); Bilirubin Total* 0.7 mg/dL (0.1-1.5); Blood Urea Nitrogen* 19 mg/dL (5-24); Calcium* 9.3 mg/dL (8.4-10.6); Carbon Dioxide* 29 mmol/L (20-32); Creatinine* 0.6 mg/dL (0.5-1.5); Est. Creatinine Clearance* 116.36; Estimated Glomerular Filt Rate 113 ml/min; Glucose* 99 mg/dL (60-115); Total Protein* 6.9 g/dL (6.0-8.3)
[2024-10-01 08:54] VITALS: BP 115/79; PULSE 64; RESP 16; TEMP 35.8; O2SAT 99
[2024-10-01 09:12] LABS: Basophils Absolute Auto 0.02 K/uL (0.00-0.30); Basophils Percent Auto 0.4 % (0.0-3.0); Eosinophils Absolute Auto 0.05 K/uL (0.00-0.50); Eosinophils Percent Auto 1.1 % (0.0-7.0); Hematocrit 40.2 % (33.0-51.0); Hemoglobin* 13.8 gm/dL (12.0-16.0); Lymphocytes Absolute Auto 0.93 K/uL (0.90-2.90); Lymphocytes Percent Auto 20.4 % (20-44); Mean Corpuscular HGB Conc 34 gm/dL (32-36); Mean Corpuscular Hemoglobin 30 pg (26-34); Mean Corpuscular Volume 88 fL (80-100); Monocytes Percent Auto 10.9 % (0.0-11.0); Neutrophils Absolute Auto 3.07 K/uL (1.7-7.0); Neutrophils Percent Auto 67.2 % (42.0-72.0); Platelet Count* 257 K/uL (140-440); Red Blood Count 4.58 m/uL (4.00-5.20); White Blood Count* 4.57 K/uL (4.50-11.00)
[2024-10-01 09:14] LABS: Slide Review Reflex No
[2024-10-01 09:27] LABS: Albumin* 4.2 g/dL (3.3-5.0); Chloride* 103 mmol/L (96-114)
[2024-10-01 09:28] LABS: Potassium* 3.9 mmol/L (3.6-5.1); Sodium* 138 mmol/L (135-149)
[2024-10-01 09:30] LABS: Anion Gap 8 mEq/L (7-15); Aspartate Amino Transferase* 29 U/L (12-35); Bilirubin Total* 0.5 mg/dL (0.1-1.5); Carbon Dioxide* 27 mmol/L (20-32); Creatinine* 0.7 mg/dL (0.5-1.5); Est. Creatinine Clearance* 99.73; Estimated Glomerular Filt Rate 109 ml/min; Total Protein* 6.6 g/dL (6.0-8.3)
[2024-10-01 09:31] LABS: Alanine Aminotransferase* 37 U/L (4-35); Alkaline Phosphatase* 117 U/L (40-150); Blood Urea Nitrogen* 17 mg/dL (5-24); Calcium* 9.3 mg/dL (8.4-10.6); Glucose* 132 mg/dL (60-115)
[2024-10-01 10:25] LABS: HCG Quantitative* < 2.39 mIU/mL
[2024-10-01] MEDS: OBINUTUZUMAB 1,000 MG, TUBING PRIMARY 1 EACH in 0.9 % SODIUM CHLORIDE 250 ml 250 ML 25 MG IVPB (11:01)
[2024-10-01 11:37] VITALS: BP 120/83; PULSE 53; RESP 16; TEMP 36.6; O2SAT 99
[2024-10-01] MEDS: SODIUM CHLORIDE 0.9 % (FLUSH) 10 ML SYRINGE IVF (12:49)
[2024-10-01] MEDS: HEPARIN 500 UNIT/5 ML SYRINGE IVF (12:49)
[2024-10-01 12:50] VITALS: BP 120/81; PULSE 62; RESP 16; TEMP 36.6; O2SAT 100
[2024-10-31] MEDS: SODIUM CHLORIDE 0.9 % (FLUSH) 10 ML SYRINGE IVF (07:58)
[2024-10-31] MEDS: HEPARIN 500 UNIT/5 ML SYRINGE IVF (07:58)
[2024-11-25 08:29] VITALS: BP 115/75; PULSE 80; RESP 15; TEMP 36.3; O2SAT 99
[2024-11-25 08:57] LABS: Basophils Absolute Auto 0.02 K/uL (0.00-0.30); Basophils Percent Auto 0.4 % (0.0-3.0); Eosinophils Absolute Auto 0.06 K/uL (0.00-0.50); Eosinophils Percent Auto 1.2 % (0.0-7.0); Hematocrit 39.4 % (33.0-51.0); Hemoglobin* 13.4 gm/dL (12.0-16.0); Lymphocytes Percent Auto 19.5 % (20-44); Mean Corpuscular HGB Conc 34 gm/dL (32-36); Mean Corpuscular Hemoglobin 30 pg (26-34); Mean Corpuscular Volume 88 fL (80-100); Monocytes Percent Auto 11.3 % (0.0-11.0); Neutrophils Absolute Auto 3.47 K/uL (1.7-7.0); Neutrophils Percent Auto 67.6 % (42.0-72.0); Platelet Count* 256 K/uL (140-440); RDW Coefficient of Variation % 12.5 % (11.5-15.5); Red Blood Count 4.48 m/uL (4.00-5.20); White Blood Count* 5.13 K/uL (4.50-11.00)
[2024-11-25 09:02] LABS: Slide Review Reflex No
[2024-11-25 09:10] LABS: Chloride* 107 mmol/L (96-114); Sodium* 139 mmol/L (135-149)
[2024-11-25 09:11] LABS: Potassium* 3.9 mmol/L (3.6-5.1)
[2024-11-25 09:13] LABS: Alkaline Phosphatase* 157 U/L (40-150); Anion Gap 4 mEq/L (7-15); Aspartate Amino Transferase* 44 U/L (12-35); Bilirubin Total* 0.9 mg/dL (0.1-1.5); Blood Urea Nitrogen* 15 mg/dL (5-24); Carbon Dioxide* 28 mmol/L (20-32); Creatinine* 0.6 mg/dL (0.5-1.5); Est. Creatinine Clearance* 116.36; Estimated Glomerular Filt Rate 113 ml/min; Total Protein* 6.3 g/dL (6.0-8.3)
[2024-11-25 09:14] LABS: Alanine Aminotransferase* 99 U/L (4-35); Calcium* 9.1 mg/dL (8.4-10.6); Glucose* 114 mg/dL (60-115)
[2024-11-25 09:44] LABS: HCG Quantitative* < 2.39 mIU/mL
--- NOTE | 2024-11-25 11:13 | ONC.NURNOTE ---
Pt here for Gazyva infusion today. Per Dr. Green's note pt to f/u with this infusion; ok'd per clinic nurse per pt to omit this f/u appt d/t Dr. Bravo out of office currently. Elevated LFT's today; see labs. Previously when elevated LFTs, Gazyva held x 2 weeks then proceeded with LFTs WNL; this was 08/2024 infusion, pt had just returned from vacation and had had higher alcohol intake than normal. Assessed pt; no abd pain or jaundice. Pt reports having 1 cocktail ~2 days ago with holiday celebration; does not take tylenol. Reviewed with Anny Longo APRN; hold Gazyva today x 2 weeks; see Dr. Green prior to infusion. Pt scheduled 12/10 for labs/Norma virtual/Gazyva infusion. Pt to discuss liver workup with Dr. Green, expresses concern about cause of increased LFT's when her alcohol intake was low. She will abstain from alcohol in the mean time.
[2024-12-10] MEDS: SODIUM CHLORIDE 0.9 % (FLUSH) 10 ML SYRINGE IVF ×2 (09:25→11:41)
[2024-12-10] MEDS: OBINUTUZUMAB 1,000 MG, TUBING PRIMARY 1 EACH in 0.9 % SODIUM CHLORIDE 250 ml 250 ML 25 MG IVPB (09:38)
[2024-12-10] MEDS: 0.9 % SODIUM CHLORIDE 500 ML IV (09:40)
[2024-12-10] MEDS: HEPARIN 500 UNIT/5 ML SYRINGE IVF (11:41)
[2024-12-10 11:46] LABS: Hepatitis C Virus Antibody* Negative (Negative)
[2024-12-11 20:37] LABS: Hepatitis B Core Antibodies Negative (Negative)
--- NOTE | 2024-12-12 09:51 | ONC.NURNOTE ---
Pet scan order with supporting documentation faxed to [facility] #[phone]. Left message with pt with date and time of scan.
[2025-01-10] MEDS: HEPARIN 500 UNIT/5 ML SYRINGE IVF (12:22)
[2025-01-10] MEDS: SODIUM CHLORIDE 0.9 % (FLUSH) 10 ML SYRINGE IVF (12:23)
--- NOTE | 2025-01-16 09:23 | ONC.NURNOTE ---
Ultrasound reviewed by Dr. Green and per Dr. Green there is no concern at this time. Pt notified.
== END 2025-01-20 23:59 | disposition home or self-care (01) ==
LOC: CCIC 10:30
PROVIDERS: Clinical Nurse Specialist; PCP Physician Assistant Medical; Referring Provider Physician Assistant Medical; Visit Provider Internal Medicine Hematology & Oncology
DX: C82.90 Follicular lymphoma, unspecified, unspecified site (principal); R94.5 Abnormal results of liver function studies; N28.1 Cyst of kidney, acquired
CPT/HCPCS: 36415; 36591; 80053; 84443; 84702; 85025; 86704; 86803; 96413; 96415; 99211; 99213; 99214; G0463; A9270; J1642; J7030; J7050; J9301

== ENCOUNTER 2025-01-10 11:02 | Outpatient (CLI) | payer BC, SELFPAY | END 2025-01-10 11:03 | disposition home or self-care (01) | LOC: US 11:03 | PROVIDERS: PCP Physician Assistant Medical; Visit Provider Internal Medicine Hematology & Oncology | DX: R94.5 Abnormal results of liver function studies (principal); N28.1 Cyst of kidney, acquired; C82.90 Follicular lymphoma, unspecified, unspecified site | CPT/HCPCS: 76700 ==

== ENCOUNTER 2025-07-23 07:45 | Outpatient (RCR) | payer BC, SELFPAY ==
[2025-02-05] MEDS: SODIUM CHLORIDE 0.9 % (FLUSH) 10 ML SYRINGE IVF ×2 (08:00→12:15)
[2025-02-05 08:19] LABS: Hematocrit 41.3 % (33.0-51.0); Hemoglobin* 14.2 gm/dL (12.0-16.0); Immature Granulocytes Abs Auto 0.01 K/uL (0.00-0.30); Immature Granulocytes Pct Auto 0.2 %; Lymphocytes Absolute Auto 1.22 K/uL (0.90-2.90); Mean Corpuscular HGB Conc 34 gm/dL (32-36); Mean Corpuscular Hemoglobin 31 pg (26-34); Mean Corpuscular Volume 89 fL (80-100); RDW Coefficient of Variation % 12.5 % (11.5-15.5); Red Blood Count 4.66 m/uL (4.00-5.20); White Blood Count* 5.41 K/uL (4.50-11.00)
[2025-02-05 08:24] LABS: Slide Review Reflex No
[2025-02-05 08:25] LABS: Albumin* 4.2 g/dL (3.3-5.0)
[2025-02-05 08:26] LABS: Chloride* 104 mmol/L (96-114); Potassium* 3.6 mmol/L (3.6-5.1); Sodium* 140 mmol/L (135-149)
[2025-02-05 08:28] LABS: Anion Gap 7 mEq/L (7-15); Aspartate Amino Transferase* 26 U/L (12-35); Bilirubin Total* 0.8 mg/dL (0.1-1.5); Blood Urea Nitrogen* 14 mg/dL (5-24); Carbon Dioxide* 29 mmol/L (20-32); Creatinine* 0.6 mg/dL (0.5-1.5); Est. Creatinine Clearance* 115.14; Estimated Glomerular Filt Rate 113 ml/min; Total Protein* 6.9 g/dL (6.0-8.3)
[2025-02-05 08:29] LABS: Alanine Aminotransferase* 37 U/L (4-35); Alkaline Phosphatase* 130 U/L (40-150); Calcium* 9.1 mg/dL (8.4-10.6); Glucose* 100 mg/dL (60-115)
[2025-02-05 09:50] LABS: HCG Quantitative* < 2.39 mIU/mL
[2025-02-05] MEDS: OBINUTUZUMAB 1,000 MG, TUBING PRIMARY 1 EACH in 0.9 % SODIUM CHLORIDE 250 ml 250 ML 25 MG IVPB (10:19)
[2025-02-05 10:55] VITALS: BP 129/84; PULSE 58; RESP 16; TEMP 36.9; O2SAT 99
[2025-02-05] MEDS: HEPARIN 500 UNIT/5 ML SYRINGE IVF (12:15)
[2025-02-28] MEDS: SODIUM CHLORIDE 0.9 % (FLUSH) 10 ML SYRINGE IVF (09:25)
[2025-02-28] MEDS: HEPARIN 500 UNIT/5 ML SYRINGE IVF (09:25)
[2025-04-02 08:23] LABS: Hematocrit 39.6 % (33.0-51.0); Hemoglobin* 13.5 gm/dL (12.0-16.0); Immature Granulocytes Abs Auto 0.01 K/uL (0.00-0.30); Immature Granulocytes Pct Auto 0.2 %; Lymphocytes Absolute Auto 1.24 K/uL (0.90-2.90); Mean Corpuscular HGB Conc 34 gm/dL (32-36); Mean Corpuscular Hemoglobin 30 pg (26-34); Mean Corpuscular Volume 88 fL (80-100); RDW Coefficient of Variation % 12.6 % (11.5-15.5); Red Blood Count 4.52 m/uL (4.00-5.20); Slide Review Reflex No; White Blood Count* 5.35 K/uL (4.50-11.00)
[2025-04-02 08:32] VITALS: BP 114/79; PULSE 73; RESP 16; TEMP 36.2; O2SAT 97
[2025-04-02 08:37] LABS: Albumin* 4.3 g/dL (3.3-5.0); Chloride* 107 mmol/L (96-114); Potassium* 3.9 mmol/L (3.6-5.1); Sodium* 143 mmol/L (135-149)
[2025-04-02 08:39] LABS: Blood Urea Nitrogen* 19 mg/dL (5-24); Creatinine* 0.7 mg/dL (0.5-1.5); Est. Creatinine Clearance* 98.69; Estimated Glomerular Filt Rate 109 ml/min
[2025-04-02 08:40] LABS: Alanine Aminotransferase* 30 U/L (4-35); Alkaline Phosphatase* 104 U/L (40-150); Anion Gap 9 mEq/L (7-15); Aspartate Amino Transferase* 29 U/L (12-35); Bilirubin Total* 0.7 mg/dL (0.1-1.5); Calcium* 9.3 mg/dL (8.4-10.6); Carbon Dioxide* 27 mmol/L (20-32); Glucose* 101 mg/dL (60-115); Total Protein* 6.7 g/dL (6.0-8.3)
[2025-04-02 09:03] LABS: HCG Quantitative* < 2.39 mIU/mL
[2025-04-02] MEDS: OBINUTUZUMAB 1,000 MG, TUBING PRIMARY 1 EACH in 0.9 % SODIUM CHLORIDE 250 ml 250 ML 25 MG IVPB (09:32)
[2025-04-02 10:07] VITALS: BP 111/76; PULSE 56; RESP 16; TEMP 36.4; O2SAT 98
[2025-04-02 11:19] VITALS: BP 134/87; PULSE 59; RESP 16; TEMP 36.2; O2SAT 98
[2025-04-02] MEDS: HEPARIN 500 UNIT/5 ML SYRINGE IVF (11:19)
[2025-04-02] MEDS: SODIUM CHLORIDE 0.9 % (FLUSH) 10 ML SYRINGE IVF (11:20)
[2025-05-02] MEDS: SODIUM CHLORIDE 0.9 % (FLUSH) 10 ML SYRINGE IVF (08:10)
[2025-05-02] MEDS: HEPARIN 500 UNIT/5 ML SYRINGE IVF (08:10)
[2025-05-28 08:35] VITALS: BP 119/80; PULSE 59; RESP 16; TEMP 36.7; O2SAT 96
[2025-05-28] MEDS: SODIUM CHLORIDE 0.9 % (FLUSH) 10 ML SYRINGE IVF ×2 (08:45→12:14)
[2025-05-28 08:52] LABS: Hematocrit 38.7 % (33.0-51.0); Hemoglobin* 13.4 gm/dL (12.0-16.0); Immature Granulocytes Abs Auto 0.00 K/uL (0.00-0.30); Immature Granulocytes Pct Auto 0.0 %; Lymphocytes Absolute Auto 1.29 K/uL (0.90-2.90); Mean Corpuscular HGB Conc 35 gm/dL (32-36); Mean Corpuscular Hemoglobin 30 pg (26-34); Mean Corpuscular Volume 87 fL (80-100); RDW Coefficient of Variation % 12.6 % (11.5-15.5); Red Blood Count 4.43 m/uL (4.00-5.20); White Blood Count* 5.76 K/uL (4.50-11.00)
[2025-05-28 08:57] LABS: Slide Review Reflex No
[2025-05-28 09:04] LABS: Albumin* 4.1 g/dL (3.3-5.0); Chloride* 106 mmol/L (96-114); Potassium* 3.8 mmol/L (3.6-5.1); Sodium* 141 mmol/L (135-149)
[2025-05-28 09:06] LABS: Blood Urea Nitrogen* 12 mg/dL (5-24); Creatinine* 0.6 mg/dL (0.5-1.5); Est. Creatinine Clearance* 115.14; Estimated Glomerular Filt Rate 113 ml/min
[2025-05-28 09:07] LABS: Alanine Aminotransferase* 23 U/L (4-35); Alkaline Phosphatase* 107 U/L (40-150); Anion Gap 5 mEq/L (7-15); Aspartate Amino Transferase* 31 U/L (12-35); Bilirubin Total* 0.7 mg/dL (0.1-1.5); Calcium* 9.0 mg/dL (8.4-10.6); Carbon Dioxide* 30 mmol/L (20-32); Glucose* 100 mg/dL (60-115); Total Protein* 6.6 g/dL (6.0-8.3)
[2025-05-28 09:34] LABS: HCG Quantitative* < 2.39 mIU/mL
[2025-05-28] MEDS: OBINUTUZUMAB 1,000 MG, TUBING PRIMARY 1 EACH in 0.9 % SODIUM CHLORIDE 250 ml 250 ML 25 MG IVPB (10:17)
[2025-05-28 10:53] VITALS: BP 122/82; PULSE 54; RESP 16; TEMP 36.5; O2SAT 99
[2025-05-28] MEDS: HEPARIN 500 UNIT/5 ML SYRINGE IVF (12:14)
[2025-06-30] MEDS: HEPARIN 500 UNIT/5 ML SYRINGE IVF (09:55)
[2025-06-30] MEDS: SODIUM CHLORIDE 0.9 % (FLUSH) 10 ML SYRINGE IVF (09:55)
[2025-07-23] MEDS: SODIUM CHLORIDE 0.9 % (FLUSH) 10 ML SYRINGE IVF ×2 (08:10→09:30)
[2025-07-23 08:28] LABS: Hematocrit 39.3 % (33.0-51.0); Hemoglobin* 13.4 gm/dL (12.0-16.0); Immature Granulocytes Abs Auto 0.00 K/uL (0.00-0.30); Immature Granulocytes Pct Auto 0.0 %; Lymphocytes Absolute Auto 1.39 K/uL (0.90-2.90); Mean Corpuscular HGB Conc 34 gm/dL (32-36); Mean Corpuscular Hemoglobin 30 pg (26-34); Mean Corpuscular Volume 87 fL (80-100); RDW Coefficient of Variation % 12.5 % (11.5-15.5); Red Blood Count 4.50 m/uL (4.00-5.20); White Blood Count* 5.12 K/uL (4.50-11.00)
[2025-07-23 08:31] LABS: Albumin* 4.1 g/dL (3.3-5.0); Chloride* 105 mmol/L (96-114); Potassium* 3.7 mmol/L (3.6-5.1); Slide Review Reflex No; Sodium* 140 mmol/L (135-149)
[2025-07-23 08:34] LABS: Alanine Aminotransferase* 28 U/L (4-35); Alkaline Phosphatase* 94 U/L (40-150); Anion Gap 5 mEq/L (7-15); Aspartate Amino Transferase* 32 U/L (12-35); Bilirubin Total* 0.8 mg/dL (0.1-1.5); Blood Urea Nitrogen* 12 mg/dL (5-24); Calcium* 9.2 mg/dL (8.4-10.6); Carbon Dioxide* 30 mmol/L (20-32); Creatinine* 0.7 mg/dL (0.5-1.5); Est. Creatinine Clearance* 98.69; Estimated Glomerular Filt Rate 109 ml/min; Glucose* 95 mg/dL (60-115); Total Protein* 6.6 g/dL (6.0-8.3)
[2025-07-23 08:58] LABS: HCG Quantitative* < 2.39 mIU/mL
[2025-07-23] MEDS: HEPARIN 500 UNIT/5 ML SYRINGE IVF (09:30)
== END 2025-08-04 23:59 | disposition home or self-care (01) ==
LOC: CCIC 07:45
PROVIDERS: Clinical Nurse Specialist; PCP Physician Assistant Medical; Referring Provider Physician Assistant Medical; Visit Provider Internal Medicine Hematology & Oncology
DX: C82.04 Follicular lymphoma grade I, lymph nodes of axilla and upper limb (principal); E04.1 Nontoxic single thyroid nodule; N91.2 Amenorrhea, unspecified; Z95.828 Presence of other vascular implants and grafts; Z79.899 Other long term (current) drug therapy
CPT/HCPCS: 36415; 36591; 76536; 80050; 80053; 84443; 84702; 85025; 96413; 96415; 99211; 99214; 99215; G0463; J1642; J7050; J9301